=== PATIENT | male | born 1955 | race Caucasian/White ===

== ENCOUNTER 2016-11-21 15:28 | Inpatient (IN) | payer OTHER ==
[~2016-11-21] VITALS: Ht 177.8 cm; Wt 131.3 kg
[~2016-11-21 15:28] MED LIST: ASPI81TA3 PO; ATOR40TA69 PO; CLOP75TA28 PO; FURO40TA4 PO; HYDR-3939 PO; INSU100I SC; INSU100I SQ; INSU100V7 SUBQ; IRON150C15 PO; ISOS20TA7 PO; METO1TAB28 PO
[2016-11-21 16:46] VITALS: BP 184/71; PULSE 71; RESP 19; O2SAT 94
[2016-11-21] MEDS ORDERED: Polyethylene Glycol (PEG) 17 Gm Powder PO PRN (16:50)
[2016-11-21] MEDS ORDERED: Alum-Mag Hydrox-Simeth 30 mL Suspension PO PRN (16:50)
[2016-11-21] MEDS ORDERED: Ondansetron 2 mg/mL 2 mL Inj IVPUSH PRN (16:50)
[2016-11-21] MEDS: 0.9% Sodium Chloride 1,000 ML IV SCH (16:50)
[2016-11-21] MEDS ORDERED: HYDR100T27 PO (16:55)
[2016-11-21] MEDS ORDERED: FRSM80T PO ×2 (16:55)
[2016-11-21] MEDS ORDERED: LISI2.5T PO (16:59)
[2016-11-21] MEDS ORDERED: METO25TA99 PO (16:59)
[2016-11-21] MEDS ORDERED: NITR0.4T SL (16:59)
[2016-11-21] MEDS ORDERED: GABA-502 PO (17:04)
[2016-11-21] MEDS ORDERED: OMEP20CA11 PO (17:04)
[2016-11-21] MEDS ORDERED: CALC0.257 PO (17:04)
--- NOTE | 2016-11-21 17:17 | PCM.HPMED ---
Subjective Date of Service Nov 21, 2016 Primary Provider: Admitting Physician: Michel Resendez DO Primary Care Physician: Audie Collins MD Attending Physician: Michel Resendez DO Chief Complaint: "Renal failure" as per transfering ER physician History of Present Illness: Pt is a 61 yo M with pmhx significant for anemia, chronic renal insufficiency, DMII , hypertension, and hyperlipidemia, presenting to [facility] ER earlier today for further evaluation of acute on chronic renal insufficiency. Lab studies at the hospital demonstrated acutely elevated Cr of 2.7 much above baseline, which prompted communication with on-call rn pediatric icu Dr. Sheehan who recommended direct transfer to [facility] for closer observation and possible dialysis should renal failure prove progressive. Pt additionally suffers from anemia, which is still being evaluated by [employer], who's office pt was at earlier today prior to transfer. While in ER at [facility] pt obtained renal US which demonstrated no significant abnormality. Patient notes most significantly he has been feeling pain in the flank areas for the last few weeks, initially thought was back pain but then began to wonder the health of his kidneys. This was doing conjunction with a decreased amount of urine production, either while continuing to utilize the high-dose of Lasix he was prescribed. Swelling in his legs however which have been a more of a problem previously was greatly improved over the last week especially. At no point has he noted any blood or discoloration of his urine. His stools been a bit looser but otherwise normal. He is not experiencing any chest pain shortness of breath or palpitations. Is currently feeling relatively well, no acute complaints, but a little bit lower energy than his normal. He is quite hungry, hopeful of eating dinner soon. Review of Systems: A 10 point review of systems was conducted and entirely negative excepting pertinent positives and negatives included in above history of present illness Allergies Coded Allergies: No Known Allergies (Unverified , 07/27/15) Home Medications Terbinafine 250mg PO QDAY Metoprolol Succinate/HCTZ 25mg/12.5mg PO QDAY Plavix 75mg PO daily Hydralazine 25 mg PO TID Isosorbide 40mg PO TID Lasix 80mg PO QDAY Lipitor 40mg PO QDAY Lantus 50U SQ QHS Melozicam 15mg PO daily PRN Flexeril 10mg PO TID PRN Humalog 10U TID AC [place] 5/325mg PO Q4H PRN pain Omeprazole 20mg PO QDAY Gabapentin 300mg PO TID PMH Hypertension Hyperlipidemia DMII Diabetic neuropathy Diabetic nephropathy Anemia Renal insufficiency History of non-STEMI Cardiovascular disease Surgical History Tonsillectomy Social History Hx Alcohol Use: No Hx Substance Use: No Hx Tobacco Use: No Smoking Status: Never Smoker Exam Vital Signs Vital Sign - Last Date Time Temp Pulse Resp B/P Pulse Ox O2 Delivery O2 Flow Rate FiO2 11/21/16 16:46 36.5 71 19 184/71 94 Room Air General: Alert, Oriented X3, Cooperative, No Acute Distress Mouth: Mucous Membranes Dry Chest & Lungs: Clear to auscultation & percussion Cardiovascular: Regular Rate/Rhythm, No Murmurs/Rubs/Gallops Abdomen: Non-tender, Non-distended, Other (obese) Extremities: No cyanosis/clubbing/edma bilat, Other (dorsal pedis pulses intact bilaterally, there is trace pedal edema leading to the impressions at sock line) Neurological: Grossly Neurologically Intact, Cranial Nerves 2-12 Intact Assessment & Plan Pt is a 61 yo M with pmhx significant for anemia, chronic renal insufficiency, DMII , hypertension, and hyperlipidemia, presenting to [facility] ER earlier today for further evaluation of acute on chronic renal insufficiency, admitted for further observaiton of renal function and possible dialysis if condition proves progressive 1. Acute on chronic renal failure: - NS 0.9% now at 75ml/hr - Nephrology already aware of patient, will provide consultation which is appreciated - Hold nephrotoxic agents including NSAIDs (meloxicam) in addition to Gabapentin at this time - Will additionally hold diuretic HCTZ initially, in addition to lisinopril. 2. Hypertension - Continue home antihypertensives excepting HCTZ and lisinopril, which includes hydralazine and Metoprolol. - Elevated on admission, PRN Lopressor RX'd for severe hypertension 3. DMII with neuropathy and nephropathy - Continue home Lantus, 50U HS in addition to SSI 4. Anemia: - Continue to monitor - Pt RX'd EPO in past, may consider repeating, awaiting specialist recommendation. 5. Coronary artery disease/lower extremity edema - Continue patient's home statin and aspirin at current dosage. - Patient benefits from loop diuretic at home to aid in lower extremity edema and swelling, likely secondary to impaired cardiac functioning following an STEMI, however given dual diuretic use and evidence for prerenal azotemia, diuresis in the future will have to be conducted with more caution. We will continue holding both diuretics at this time, consider slow initiation as tolerated with assistance of neurology recommendations. Pain Evaluation: Adequate Pain Control GI Prophylaxis: Proton Pump Inhibitor VTE Mechanical Devices: Anti-Embolic stockings Resuscitation Status: CPR: Attempt Resuscitation Time spent 55 minutes Michel Resendez DO Nov 21, 2016 17:17
[2016-11-21] MEDS ORDERED: MeTOProlol 1 mg/mL 5 mL Inj IVPUSH PRN (17:25)
--- NOTE | 2016-11-21 18:17 | NUR ---
ADMIT Admitted a direct admit into room 3006 from [facility] following report from [place], ER ER at . Pt arrived via EMS stretcher, A&Ox4, pleasant. Denies any pain/discomfort. Pt on RA. Able to transfer from stretcher to bed with SBA. IV in L hand, flushing without issue. Per report, pt is diabetic and had not eaten yet. Prior to dc from ER, blood sugar taken: 290. No TELE ordered. Partner and brother at bedside. Pt introduced to staff, bed/controls and call light. Plan is to have nephrology consult. Hospitalist currently at bedside. Bed in lowest, locked position and call light in reach.
[2016-11-21] MEDS: MeTOProlol XL 25 mg ER24 Tablet PO SCH (19:30)
[2016-11-21] MEDS ORDERED: Glucose 40% Oral Gel 15 Gm Tube PO PRN (19:40)
[2016-11-21 19:43] VITALS: BP 148/80; PULSE 70; RESP 19; O2SAT 95
[2016-11-21] MEDS: Insulin LISPRO 300 Unit/3 mL Inj SUBQ SCH (22:58)
[2016-11-21] MEDS: Insulin GLARgine 100 Unit/mL Syringe SUBQ SCH (22:59)
[2016-11-22 04:52] VITALS: BP 149/83; PULSE 69; RESP 18; O2SAT 94
--- NOTE | 2016-11-22 05:43 | NUR ---
uneventful night patient slept throughout the night. using home cpap. denies SOB. vitals stable. c/o cough and back pain. patient helped to reposition in bed and reported improvement of back pain. voiding without difficulty. up independently in room. will continue to monitor.
[2016-11-22 05:57] LABS: BASOPHILS % (AUTO) 0.3 % (0-3); EOSINOPHILS % (AUTO) 4.1 % (0-5); MONOCYTES % (AUTO) 7.3 % (4-12); NEUTROPHILS % (AUTO) 65.4 % (40-74); Platelet Count 250 bil/L (150-400)
[2016-11-22] MEDS: Pantoprazole 40 mg ER24 Tablet PO SCH (05:58)
[2016-11-22] MEDS: 0.9% Sodium Chloride 1,000 ML IV SCH ×3 (05:58→20:44)
[2016-11-22] MEDS ORDERED: INSULIN ASPART 10 UNIT SC SCH (07:30)
[2016-11-22] MEDS: MeTOProlol XL 25 mg ER24 Tablet PO SCH (07:51)
[2016-11-22] MEDS: Insulin LISPRO 300 Unit/3 mL Inj SUBQ SCH ×4 (07:54→21:01)
--- NOTE | 2016-11-22 11:08 | NUR ---
Social Work-screening/ readiness for discharge: Data:EMR Reviewed. Pt is a 61 y/o male who was admitted on 11/21/16 for acute renal failure per H&P. Pt's insurance is [email or web address] and PCP is Jose Raul Collins MD. EMR reviewed. SW met with pt at bedside to discuss discharge planning, SW role explained. Pt is alert and oriented x3. Pt resides at home with his roommate Arjun in [facility] where he remains independent with ADls. Pt drives and does not use any DME. Pt has no HH or SNF history. SW discussed DPOA/ advanced directive, pt confirms he has not completed this and is not interested in any information at this time. Pt confirms his roommate Arjun will provide transport home. Per RN notes, pt has been up independent in his room. SW provided phone number and plan on white board in room. No anticipated discharge needs. SW will continue to follow if needs arise. Assessment:Pt who is independent at baseline. Plan:Pt to discharge home when medically stable via POV. No anticipated discharge needs. SW will continue to follow if needs arise. RICKY De Luna
--- NOTE | 2016-11-22 11:23 | PCM.PNMED ---
Subjective Date of Service Nov 22, 2016 Subjective Patient notes he did well overnight. He slept without difficulty. Denies any shortness of breath chest pain this morning. He has been urinating a good deal even in the absence of Lasix, but not sure if it is exactly as baseline. He denies any worsening of his lower extremity swelling. No other acute complaints at this time Exam Vital Signs Vital Sign - Last Date Time Temp Pulse Resp B/P Pulse Ox O2 Delivery O2 Flow Rate FiO2 11/22/16 04:52 36.4 69 18 149/83 94 CPAP Intake and Output 11/21/16 11/21/16 11/22/16 Cumulative From/Thru 15:00 23:00 07:00 11/21/16 16:46 - 11/22/16 06:01 Intake Total 500 ml 500 ml Output Total 1075 ml 1075 ml Balance -575 ml -575 ml Intake Oral 500 ml 500 ml Output Urine Total 1075 ml 1075 ml # Voids 1 1 General: Alert, Oriented X3, Cooperative, No Acute Distress Eyes: PERRLA Mouth: Mucous Membr Moist/[place] Chest & Lungs: Clear to auscultation & percussion Cardiovascular: Regular Rate/Rhythm, No Murmurs/Rubs/Gallops Abdomen: Non-tender, Non-distended, Other (obese) Extremities: No cyanosis/clubbing/edma bilat, Other (well-perfused) Neurological: Grossly Neurologically Intact IVs and Medications Medications Reviewed: Medications were reviewed in detail Lab and Diagnostics Result Diagram: 11/22/1615 11/22/1615 Assessment & Plan Pt is a 61 yo M with pmhx significant for anemia, chronic renal insufficiency, DMII , hypertension, and hyperlipidemia, presenting to [facility] ER earlier today for further evaluation of acute on chronic renal insufficiency, admitted for further observaiton of renal function and possible dialysis if condition proves progressive 1. Acute on chronic renal failure: - NS 0.9% now at 75ml/hr - Nephrology already aware of patient, will provide consultation which is appreciated - Hold nephrotoxic agents including NSAIDs (meloxicam) in addition to Gabapentin at this time - Will additionally hold diuretic HCTZ initially, in addition to lisinopril. 2. Hypertension - Continue home antihypertensives excepting HCTZ and lisinopril, which includes hydralazine and Metoprolol. - Elevated on admission, not yet normalized but improved this morning. - PRN Lopressor RX'd for severe hypertension 3. DMII with neuropathy and nephropathy - Continue home Lantus, 50U HS in addition to SSI 4. Anemia: - Continue to monitor - Pt RX'd EPO in past, may consider repeating, awaiting specialist recommendation. 5. Coronary artery disease/lower extremity edema - Continue patient's home statin and aspirin at current dosage. - Patient benefits from loop diuretic at home to aid in lower extremity edema and swelling, likely secondary to impaired cardiac functioning following an STEMI, however given dual diuretic use and evidence for prerenal azotemia, diuresis in the future will have to be conducted with more caution. We will continue holding both diuretics at this time, consider slow initiation as tolerated with assistance of neurology recommendations. Pain Evaluation: Adequate Pain Control GI Prophylaxis: Proton Pump Inhibitor VTE Mechanical Devices: Anti-Embolic stockings Resuscitation Status: CPR: Attempt Resuscitation Time spent 30 minutes Michel Resendez DO Nov 22, 2016 11:23
[2016-11-22 13:28] VITALS: BP 149/75; PULSE 75; RESP 18; O2SAT 96
--- NOTE | 2016-11-22 13:36 | NUR ---
PVR Doctor ordered PVR. Nurse preformed bladder scan and had a total of 10ml PVR. MD notified of results.
[2016-11-22 14:34] LABS: APPEARANCE,URINE CLEAR (CLEAR,HAZY); COLOR,URINE YELLOW (YELLOW); OCCULT BLOOD,URINE NEGATIVE (NEGATIVE); PH,URINE 5.5 (5.0-8.0); UROBILINOGEN,URINE NORMAL (NORMAL)
--- NOTE | 2016-11-22 15:24 | CONS ---
[address] [address] CONSULTATION REPORT PATIENT: ENZO NUNES : 1955 MR#: [id number] ADMIT: 11/21/2016 JOB ID: [id number] DATE OF SERVICE: 11/22/2016 REASON FOR CONSULTATION: Worsening kidney function. REQUESTING PHYSICIAN: Michel Resendez MD. CHIEF COMPLAINT: Transferred from [facility] due to worsening kidney function. PRESENT ILLNESS: This is a very pleasant, 61-year-old, male with significant past medical history of type 2 diabetes, biopsy-proven diabetic nephropathy, diabetic neuropathy, hypertension, sleep apnea, coronary artery disease, who was transferred to our facility for a higher level of care. Apparently, patient was evaluated by production planner given chronic anemia. The blood work showed worsening kidney function with a BUN over 140 and creatinine was 2.7. She is the patient of Dr. Desir. He mentioned that the last visit with his primary customer service voice was about two weeks ago. He cannot recall the level of the serum creatinine. Per our record in [employer] system, the report from Dr. Desir stated that patient has history of chronic kidney disease stage 3, related to biopsy-proven diabetic nephropathy. BUN and creatinine on August 22, 2016, were 65 and 1.8 respectively. On that day, metolazone 2.5 mg was added to be taken every Thursday and on top of Lasix 240 mg in the morning and 80 mg in the afternoon. The patient has history of proteinuria with the last protein and creatinine ratio 1.52 g/g. He reported that he has been on high-dose loop diuretics for at least a year. Typically, he had lower extremity swelling. So far, patient had lost at least 10 pounds over the past month, also. He does not have significant lower extremity swelling. He reported that over the past month or so, he noticed declining of the urine volume and noticed dark-colored urine. He also had difficulty urinating. Of note, he mentioned that he had left flank pain. Got worse while bending over or sitting. The patient was seen by his practitioner and was given muscle relaxant and meloxicam. He was also taking gabapentin for neuropathy over the past six months. He does not use any NSAIDs except meloxicam that was prescribed by his physician for the left flank pain. The patient reports no fever, no chills, no chest pain, no shortness of breath. The patient received IV fluid overnight, has normal saline 75 cc/hour. Repeat BMP this morning showed BUN of 138, creatinine of 2.29, glucose of 224. He has no new complaint today. PAST MEDICAL HISTORY: 1. Poor controlled diabetes complicated by diabetic nephropathy, neuropathy. 2. Coronary artery disease. 3. History of w[place]. 4. Chronic kidney disease stage 3. 5. Proteinuria secondary to diabetic nephropathy, status post biopsy proven. 6. Dyslipidemia. 7. Severe obstructive sleep apnea. SURGICAL HISTORY: Status post tonsillectomy. SOCIAL HISTORY: Denies current use of alcohol, tobacco, or illicit drugs. FAMILY HISTORY: Noncontributory. ALLERGIES: NO KNOWN DRUG ALLERGIES. MEDICATIONS: Reviewed. Of note, he was on: 1. Furosemide 240 mg in the morning, 80 mg in the afternoon. 2. Lisinopril 2.5 mg daily. 3. Metolazone 2.5 mg on Thursday and . 4. Meloxicam once a day. 5. Omeprazole 20 mg once a day. 6. Metoprolol ER 25 once a day. 7. Isosorbide dinitrate 40 mg t.i.d. 8. Lantus. 9. NovoLog. 10. Hydralazine. 11. Gabapentin 300 b.i.d. 12. Lipitor. 13. Calcitriol. 14. Aspirin. 15. Plavix. REVIEW OF SYSTEMS: Fourteen-point review of system was performed. PHYSICAL EXAMINATION: VITALS: Temperature 36.6, pulse 75, respiratory rate 18, blood pressure 149/75, O2 sat 96% on room air. GENERAL APPEARANCE: Awake, alert, oriented x3. In no acute distress. HEENT: PERRLA. Atraumatic. Moist mucous membranes. PERRLA. No JVD. No lymphadenopathy. No thyroid enlargement. HEART: Regular rhythm. Normal S1, S2. No murmurs, rubs, or gallops. LUNGS: Clear to auscultation bilaterally. ABDOMEN: Soft, active bowel sounds. EXTREMITIES: No edema, cyanosis, or clubbing of fingers. Kidney sonogram was done in [facility]. Showed no significant abnormalities. LABORATORY: Sodium 140, potassium 5.0, chloride 101, bicarb 20, BUN 138, creatinine 2.29, glucose 224. Calcium 9.8, hemoglobin 10.4. UA: Specific gravity 1.010, pH 5.5, 30 protein, 250 glucose, 0-2 RBCs, 0-5 WBC, rare hyaline casts. ASSESSMENT: 1. Acute kidney injury, on stage 3 chronic kidney disease secondary to overdiuresis and possible component of ischemic ATN and also with the NSAID-induced acute kidney injury (meloxicam). 2. Type 2 diabetes complicated by diabetic neuropathy and diabetic nephropathy. 3. Proteinuria. 4. Hypertension with hypertensive nephrosclerosis. 5. Anemia likely due to anemia of chronic kidney disease. 6. Coronary artery disease. 7. Severe sleep apnea. 8. Dyslipidemia. PLAN: At this point, I would like to continue normal saline at 75 cc/hour. Will recommend to hold all diuretics. Avoid nephrotoxins including meloxicam and other NSAIDs. Check postvoid residual to rule out any neurogenic bladder or obstructive uropathy. Hold lisinopril. Will repeat anemia workup and repeat urine protein/creatinine ratio. Will order urine eosinophils. No urgent dialysis indicated at this moment. Thank you for allowing me to participate in the care of your patient. We will monitor along with you. [facility]ITALL[facility]ont
[2016-11-22 20:50] VITALS: BP 180/92; PULSE 75; RESP 18; O2SAT 92
[2016-11-22] MEDS: Insulin GLARgine 100 Unit/mL Syringe SUBQ SCH (21:01)
--- NOTE | 2016-11-23 04:41 | NUR ---
Noc activity Pt had an elevated sugar levels, has been running on 320. Insulin lantus and lispro administered as per sliding scale, and was verified with Raeann Crystal RN. HS meds administered as scheduled, VSS and has been afebrile. Hourly rounding in effect and pt has slept most of the night.
[2016-11-23 04:49] VITALS: BP 185/92; PULSE 74; RESP 18; O2SAT 95
[2016-11-23] MEDS: Pantoprazole 40 mg ER24 Tablet PO SCH (06:22)
[2016-11-23] MEDS: MeTOProlol XL 25 mg ER24 Tablet PO SCH (07:52)
[2016-11-23] MEDS: Insulin LISPRO 300 Unit/3 mL Inj SUBQ SCH ×4 (07:53→21:01)
[2016-11-23 10:16] VITALS: BP 177/79; PULSE 76; RESP 20; O2SAT 95
[2016-11-23] MEDS: 0.9% Sodium Chloride 1,000 ML IV SCH ×2 (10:36→14:09)
--- NOTE | 2016-11-23 10:51 | PCM.PNMED ---
Subjective Date of Service Nov 23, 2016 Subjective Overall patient says he is feeling very well, has no acute complaints this morning. He is eating and drinking a good deal, denies any shortness of breath or chest pains. Swelling his legs which he had taken diuretics now held ,has not returned Exam Vital Signs Vital Sign - Last Date Time Temp Pulse Resp B/P Pulse Ox O2 Delivery O2 Flow Rate FiO2 11/23/16 10:16 36.5 76 20 177/79 95 Room Air Intake and Output 11/22/16 11/22/16 11/23/16 Cumulative From/Thru 15:00 23:00 07:00 11/21/16 16:46 - 11/23/16 06:23 Intake Total 2172 ml 1536 ml 4208 ml Output Total 1900 ml 1025 ml 4000 ml Balance 272 ml 511 ml 208 ml Intake Oral 1356 ml 673 ml 2529 ml IV Total 816 ml 863 ml 1679 ml Output Urine Total 1900 ml 1025 ml 4000 ml # Voids 1 # Bowel Movements 1 1 Exam General: Alert, Oriented X3, Cooperative, No Acute Distress Eyes: PERRLA Mouth: Mucous Membranes Moist/[place] Chest & Lungs: Clear to auscultation & percussion Cardiovascular: Regular Rate/Rhythm, No Murmurs/Rubs/Gallops Abdomen: Non-tender, Non-distended, Other (obese) Extremities: No cyanosis/clubbing/edema bilat, and well-perfused) Neurological: Grossly Neurologically Intact IVs and Medications Medications Reviewed: Medications were reviewed in detail Lab and Diagnostics Result Diagram: 11/22/16 0515 11/23/16 0445 Assessment & Plan Pt is a 61 yo M with pmhx significant for anemia, chronic renal insufficiency, DMII , hypertension, and hyperlipidemia, presenting to [facility] ER earlier today for further evaluation of acute on chronic renal insufficiency, admitted for further observaiton of renal function and possible dialysis if condition proves progressive 1. Acute on chronic renal failure: - NS 0.9% now at 75ml/hr, will certainly be considering discontinuation later in the day following discussion with nephrology - Holding nephrotoxic agents including NSAIDs (meloxicam) in addition to Gabapentin at this time - Will additionally hold diuretic HCTZ initially, in addition to lisinopril, however given patient's elevated blood pressure some decisions on long-term antihypertensive therapy will need to be made prior to discharge. Turned of therapies may be considered though given patient's comorbid diabetes lisinopril certainly be of benefit if not overly damaging to renal function. 2. Hypertension - Continue home antihypertensives excepting HCTZ and lisinopril, which includes hydralazine and Metoprolol. - Elevated on admission, and remained so this morning. - As noted above we will need to consider additional medications for blood pressure control in conjunction with patient's renal disease. - We will discuss possibilities further with nephrology prior to initiating additional antihypertensive medications - PRN Lopressor RX'd for severe hypertension 3. DMII with neuropathy and nephropathy - Continue home Lantus, 50U HS in addition to SSI - Patient may benefit from diabetic education, it should be available after the weekend should his sonogram hospital. 4. Anemia: - Continue to monitor - Pt RX'd EPO in past, may consider repeating, awaiting specialist recommendation. 5. Coronary artery disease/lower extremity edema - Continue patient's home statin and aspirin at current dosage. - Patient benefits from loop diuretic at home to aid in lower extremity edema and swelling, likely secondary to impaired cardiac functioning following an STEMI, however given dual diuretic use and evidence for prerenal azotemia, diuresis in the future will have to be conducted with more caution. We will continue holding both diuretics at this time, consider slow initiation as tolerated with assistance of nephrology recommendations. Disposition: I anticipate he will be discharged home 1-2 days following medical stabilization and found decisions to be made based on need for continued diuresis and optimal hypertensive management, of course with improving renal function in addition. GI Prophylaxis: Proton Pump Inhibitor VTE Mechanical Devices: Anti-Embolic stockings Resuscitation Status: CPR: Attempt Resuscitation Time spent 25 minutes Michel Resendez DO Nov 23, 2016 10:51
[2016-11-23 14:12] VITALS: BP 164/74; PULSE 77; RESP 18; O2SAT 95
--- NOTE | 2016-11-23 14:17 | PCM.PNNEPH ---
Subjective Date of Service Nov 23, 2016 Subjective He is feeling better, no CP/SOB. good appetite, wants to go home. Kidney function continues to improved. Exam Vital Signs Vital Sign - Last Date Time Temp Pulse Resp B/P Pulse Ox O2 Delivery O2 Flow Rate FiO2 11/23/16 10:16 36.5 76 20 177/79 95 Room Air Intake and Output 11/22/16 11/22/16 11/23/16 Cumulative From/Thru 15:00 23:00 07:00 11/21/16 16:46 - 11/23/16 06:23 Intake Total 2172 ml 1536 ml 4208 ml Output Total 1900 ml 1025 ml 4000 ml Balance 272 ml 511 ml 208 ml Intake Oral 1356 ml 673 ml 2529 ml IV Total 816 ml 863 ml 1679 ml Output Urine Total 1900 ml 1025 ml 4000 ml # Voids 1 # Bowel Movements 1 1 Exam GENERAL APPEARANCE: Awake, alert, oriented x3. In no acute distress. HEENT: PERRLA. Atraumatic. Moist mucous membranes. PERRLA. No JVD. No lymphadenopathy. No thyroid enlargement. HEART: Regular rhythm. Normal S1, S2. No murmurs, rubs, or gallops. LUNGS: Clear to auscultation bilaterally. ABDOMEN: Soft, active bowel sounds. EXTREMITIES: trace edema, cyanosis, or clubbing of fingers. Lab and Diagnostics Result Diagram: 11/22/16 0515 11/23/16 0445 Plan Impression 1. Acute kidney injury, on stage 3 chronic kidney disease secondary to overdiuresis and possible component of ischemic ATN and also with the NSAID-induced acute kidney injury (meloxicam). 2. Type 2 diabetes complicated by diabetic neuropathy and diabetic nephropathy. 3. Proteinuria. 4. Hypertension with hypertensive nephrosclerosis. 5. Anemia likely due to anemia of chronic kidney disease. 6. Coronary artery disease. 7. Severe sleep apnea. 8. Dyslipidemia. Plan: Continue NS 75 ml/hr x 1L then d/c. Repeat CBC and BMP in am. Rec to resume lasix, lower dose 80 mg PO BID, hold metolazone, d/c all NSAIDs when d/c'd home. Daily weight, diuretic dosage may need to be readjusted later on. F/u with his primary director of cardiology in 1-2 weeks. Will sign off, please do not hesitate to call with any question for concern. Delroy Goff MD Nov 23, 2016 14:17
--- NOTE | 2016-11-23 18:39 | NUR ---
Daily activity Patient alert and oriented X4. Patient had slight back pain this morning of 08/29, but refused any medication. Patient cooperative with care. Patient was tired today and slept for periods throughout the day.
[2016-11-23 20:51] VITALS: BP 177/79; PULSE 82; RESP 18; O2SAT 95
[2016-11-23] MEDS: Insulin GLARgine 100 Unit/mL Syringe SUBQ SCH (21:02)
[2016-11-24] MEDS: 0.9% Sodium Chloride 1,000 ML IV SCH (00:09)
[2016-11-24] MEDS ORDERED: HYDROcodone-APAP 5-325 mg Tablet PO ONE (03:05)
[2016-11-24 04:58] VITALS: BP 157/85; PULSE 72; RESP 18; O2SAT 96
[2016-11-24 05:36] LABS: BASOPHILS % (AUTO) 0.2 % (0-3); MONOCYTES % (AUTO) 6.7 % (4-12); Mean Corpuscular Hemoglobin 26.3 pg (27.0-35.0); Mean Corpuscular Volume 82.7 fL (81-100); NEUTROPHILS % (AUTO) 80.6 % (40-74); Platelet Count 198 bil/L (150-400)
--- NOTE | 2016-11-24 05:45 | NUR ---
NOC/Pain Pt reports of hip pain that is 8/10, controlled by 1 time dose of Hydrocodone. However, Denies chest pain, sob, n/v or abd discomfort. HS meds administered as scheduled and blood sugar check done. Insulin administered per sliding scale. Hourly rounding in effect, VSS and has been afebrile all night.
[2016-11-24] MEDS: Pantoprazole 40 mg ER24 Tablet PO SCH (06:01)
[2016-11-24] MEDS ORDERED: HYDROcodone-APAP 5-325 mg Tablet PO PRN (08:50)
[2016-11-24] MEDS: MeTOProlol XL 25 mg ER24 Tablet PO SCH (09:08)
[2016-11-24] MEDS: Insulin LISPRO 300 Unit/3 mL Inj SUBQ SCH (09:08)
--- NOTE | 2016-11-24 10:32 | PCM.DC.MED ---
Discharge Summary Date of Service Nov 24, 2016 Dates of Hospitalization Date of Hospital Admission Nov 21, 2016 at 15:28 Date of Discharge: Nov 24, 2016 Providers: Admitting Physician: Michel Resendez DO Primary Care Physician: Audie Collins MD Attending Physician: Michel Resendez DO Diagnosis at Time of Discharge Diagnosis at Time of Discharge 1. Acute kidney injury, on stage 3 chronic kidney disease secondary to overdiuresis and possible component of ischemic ATN and also with the NSAID-induced acute kidney injury (meloxicam). 2. Type 2 diabetes complicated by diabetic neuropathy and diabetic nephropathy. 3. Proteinuria. 4. Hypertension with hypertensive nephrosclerosis. 5. Anemia likely due to anemia of chronic kidney disease. 6. Coronary artery disease. 7. Severe sleep apnea. 8. Dyslipidemia. Consultations Nephrology; Dr. Sheehan Brief History Pt is a 61 yo M with pmhx significant for anemia, chronic renal insufficiency, DMII , hypertension, and hyperlipidemia, presenting to [facility] ER earlier today for further evaluation of acute on chronic renal insufficiency. Lab studies at the hospital demonstrated acutely elevated Cr of 2.7 much above baseline, which prompted communication with on-call final assembly inspector Dr. Sheehan who recommended direct transfer to [facility] for closer observation and possible dialysis should renal failure prove progressive. Pt additionally suffers from anemia, which is still being evaluated by Supervisor Dry Paste, who's office pt was at earlier today prior to transfer. While in ER at [place] pt obtained renal US which demonstrated no significant abnormality. Patient notes most significantly he has been feeling pain in the flank areas for the last few weeks, initially thought was back pain but then began to wonder the health of his kidneys. This was doing conjunction with a decreased amount of urine production, either while continuing to utilize the high-dose of Lasix he was prescribed. Swelling in his legs however which have been a more of a problem previously was greatly improved over the last week especially. At no point has he noted any blood or discoloration of his urine. His stools been a bit looser but otherwise normal. He is not experiencing any chest pain shortness of breath or palpitations. Is currently feeling relatively well, no acute complaints, but a little bit lower energy than his normal. He is quite hungry, hopeful of eating dinner soon. Hospital Course 1. Acute on chronic renal failure: Hospital course as follows: - On admission, patient was initiated on intravenous fluids which were tapered and subsequently discontinued on recommendation from consult a final assembly inspector - We continued holding Holding nephrotoxic agents including NSAIDs (meloxicam), in addition to all diuretics on admission. Plan to discontinue hydrochlorothiazide cautiously resume Lasix at lower than previous dose with plan to follow-up for renal studies in 1-2 weeks to further assess. - In addition Gabapentin was held on admission but restarted at time of discharge his incision is not overly nephrotoxic and with improving renal function should be well-tolerated . 2. Hypertension - Continue home antihypertensives excepting HCTZ, Isopril was restarted on discharge. - Patient should again follow up with primary care physician in next 1 week for blood pressure check and further consideration of medication management. - Both pressures were elevated but only mildly so on discharge. 3. DMII with neuropathy and nephropathy - Continued home Lantus, 50U HS in addition to SSI 4. Anemia: - Likely at least in part related to chronic renal disease - Stable throughout admission - Was no consideration for hormonal therapy, EPO during this hospitalization. 5. Coronary artery disease/lower extremity edema - Continued patient's home statin and aspirin at current dosage. - Patient benefits from loop diuretic at home to aid in lower extremity edema and swelling, as such this was the priority when restarting diuretics. It was continued at 80 mg daily at this time, with hydrochlorothiazide held as noted above. - Patient was monitored on telemetry without abnormalities noted. He was in stable condition at time of discharge Exam Vital Signs (Last) Date Time Temp Pulse Resp B/P Pulse Ox O2 Delivery O2 Flow Rate FiO2 11/24/16 04:58 37.1 72 18 157/85 96 CPAP Exam General: Alert, Oriented X3, Cooperative, No Acute Distress Eyes: PERRLA Mouth: Mucous Membranes Moist/[place] Chest & Lungs: Clear to auscultation & percussion Cardiovascular: Regular Rate/Rhythm, No Murmurs/Rubs/Gallops Abdomen: Non-tender, Non-distended, obese Extremities: No cyanosis/clubbing/edema bilat, and well-perfused) Neurological: Grossly Neurologically Intact Test 11/22/16 05:15 11/22/16 13:18 11/22/16 15:00 11/23/16 04:45 Magnesium Level 2.0mg/dL (1.6-2.6) Total Bilirubin 0.2mg/dL (0.0-1.2) Aspartate Amino Transf (AST/SGOT) 10U/L (0-50) Alanine Aminotransferase (ALT/SGPT) 10U/L (0-44) Alkaline Phosphatase 117U/L (25-160) Total Protein 7.5g/dL (6.4-8.4) Albumin 3.8g/dL (3.4-5.0) Urine Color Yellow (YELLOW) Urine Appearance Clear (CLEAR,HAZY) Urine pH 5.5 (5.0-8.0) Urine Specific [place] 1.010 (1.003-1.035) Urine Protein 30mg/dL (NEG,TRACE) Urine Glucose (UA) 250mg/dL (NEGATIVE) Urine Ketones Negativemg/dL (NEGATIVE) Urine Occult Blood Negative (NEGATIVE) Urine Nitrite Negative (NEGATIVE) Urine Bilirubin Negative (NEGATIVE) Urine Urobilinogen Normalmg/dL (NORMAL) Urine Leukocyte Esterase Negative (NEGATIVE) Urine RBC 0-2/hpf (0-2) Urine WBC 0-5/hpf (0-5) Urine Epithelial Cells Occasional/hpf (NONE-MOD) Urine Crystals None seen (NONE SEEN) Urine Bacteria Few/hpf (NONE-FEW) Urine Hyaline Casts Rare/lpf (NONE) Urine Granular Casts None seen (NONE SEEN) Urine Waxy Casts None seen (NONE SEEN) Urine Red Blood Cell Casts None seen (NONE SEEN) Urine White Blood Cell Casts None seen (NONE SEEN) Urine Mucus None seen (None Seen) Urine Trichomonas None seen (NONE SEEN) Urine Yeast None (NONE SEEN) Urinalysis Comment None Urine Culture Reflexed Not indicated Urine Random Creatinine 42mg/dL (22-328) Urine Random Total Protein 39mg/dL (0-15) Iron Level 80ug/dL (35-150) Total Iron Binding Capacity 252ug/dL (250-450) Percent Iron Saturation 32%sat (15-50) Unsaturated Iron Binding 172.0ug/dL Ferritin 410ng/mL (30-400) Test 11/24/16 05:12 White Blood Count 12.2th/mm3 (3.8-10.1) Red Blood Count 3.65mil/mm3 (4.40-5.80) Hemoglobin 9.6g/dL (13.8-17.2) Hematocrit 30.2% (41.0-50.0) Mean Corpuscular Volume 82.7fL (81-100) Mean Corpuscular Hemoglobin 26.3pg (27.0-35.0) Mean Corpuscular Hemoglobin Concent 31.8% (32.0-37.0) Red Cell Distribution Width 15.3% (12.3-15.4) Platelet Count 198bil/L (150-400) Neutrophils (%) (Auto) 80.6% (40-74) Lymphocytes (%) (Auto) 10.3% (14-46) Monocytes (%) (Auto) 6.7% (4-12) Eosinophils (%) (Auto) 2.0% (0-5) Basophils (%) (Auto) 0.2% (0-3) Sodium Level 145mEq/L (134-144) Potassium Level 4.3mEq/L (3.5-5.2) Chloride Level 111mEq/L (97-108) Carbon Dioxide Level 20mmol/L (18-29) Blood Urea Nitrogen 73mg/dL (8-27) Creatinine 1.52mg/dL (0.76-1.27) Estimat Glomerular Filtration Rate 49mL/min (>59) Glucose Level 142mg/dL (60-99) Calcium Level 9.8mg/dL (8.5-10.1) Discharge Medications Discharge Medications Aspirin Chew (Aspirin Chew) 81 Mg Tablet 81 MG PO DAILY Prescribed by: SHAJI PADILLA DO, RESIDENT Atorvastatin Calcium (Atorvastatin Calcium) 40 Mg Tablet 40 MG PO DAILY ( Reported) Calcitriol (Rocaltrol) 0.25 Mcg Capsule 0.25 MCG PO DAILY (Reported) Clopidogrel (Clopidogrel) 75 Mg Tablet 75 MG PO DAILY Prescribed by: SHAJI PADILLA DO, RESIDENT Furosemide (Furosemide) 80 Mg Tab 240 MG PO QAM (Reported) Furosemide (Furosemide) 80 Mg Tab 80 MG PO DAILY (Reported) in the AFTERNOON Gabapentin (Gabapentin) 300 Mg Capsule 300 MG PO BID (Reported) Hydralazine (Hydralazine) 100 Mg Tablet 100 MG PO TID (Reported) Insulin Aspart (NovoLOG U-100 Pen) 100 Unit/Ml Insuln.pen 10 UNITS SC TIDAC ( Reported) Insulin Glargine (Lantus U100 Insulin Vial) 100 Unit/Ml Vial 50 UNIT SUBQ HS ( Reported) Isosorbide DN (Isosorbide DN) 20 Mg Tablet 40 MG PO TID Prescribed by: SHAJI PADILLA DO, RESIDENT Lisinopril (Lisinopril) 2.5 Mg Tablet 2.5 MG PO DAILY (Reported) Metoprolol Succinate ER (Metoprolol Succinate ER) 25 Mg Tab.er.24h 25 MG PO DAILY (Reported) Omeprazole (Omeprazole) 20 Mg Capsule.dr 20 MG PO DAILY (Reported) As needed Nitroglycerin SL (Nitrostat) 0.4 Mg Tab.subl 0.4 MG SL Q5MIN PRN PRN For Chest Pain (Reported) Followup Plan Disposition: Home with partner Follow-up plan Follow-up with primary care within 1 week of discharge, for BMP. Follow-up with outpatient final assembly inspector in 1-2 weeks following discharge, for further management considerations. Discharge Diet: Heart Healthy, Diabetic Discharge Activity: No restrictions Follow-up Provider: Audie Collins MD Follow-up with PCP in: 1 week Time spent 45 minutes copies to: Audie Collins MD, Benjamin P DO Nov 24, 2016 10:32
[2016-11-24] MEDS ORDERED: FRSM80T PO (10:33)
--- NOTE | 2016-11-24 10:37 | PCM.DIMED ---
Discharge Instructions Date of Service Nov 24, 2016 Dates of Hospitalization Nov 21, 2016 at 15:28 Discharge Diagnosis Discharge Diagnosis 1. Acute kidney injury, on stage 3 chronic kidney disease secondary to overdiuresis and possible component of ischemic ATN and also with the NSAID-induced acute kidney injury (meloxicam). 2. Type 2 diabetes complicated by diabetic neuropathy and diabetic nephropathy. 3. Proteinuria. 4. Hypertension with hypertensive nephrosclerosis. 5. Anemia likely due to anemia of chronic kidney disease. 6. Coronary artery disease. 7. Severe sleep apnea. 8. Dyslipidemia. Diet Discharge Diet: Heart Healthy, Diabetic Activity Discharge Activity: No restrictions Patient Instructions Patient Instructions Continue low-sodium diet Note changes in Lasix to 80 mg twice daily Follow-up with primary care in 1 week if possible for follow-up renal function testing Follow-up with multi operation forming machine setter in 2 weeks for further discussion of renal functioning in addition to plans for further diuretic(Lasix) dosing, as further adjustment may be required. Follow-up plan Follow-up with primary care within 1 week of discharge, for BMP. Follow-up with outpatient multi operation forming machine setter in 1-2 weeks following discharge, for further management considerations. Follow-up Provider: Audie Collins MD Follow-up with PCP in: 1 week Michel Resendez DO Nov 24, 2016 10:37
--- NOTE | 2016-11-24 10:52 | NUR ---
Social Work-discharge: Data:EMR reviewed. Pt i son day 3 of hospitalization for acute renal failure per H&P. Pt is medically stable for discharge home today. Pt resides at home in [facility] where he remains independent with ADLs. Pt confirms home no needs. Pt's friend to provide transport home today. No discharge needs identified. All updated and agreeable to plan. Assessment:Pt who is independent at baseline. Plan:Pt to discharge home today via POV. No discharge needs identified. All updated and agreeable to plan. RICKY De Luna
[2016-11-24] MEDS ORDERED: HYDR-4003 PO (11:25)
--- NOTE | 2016-11-24 12:40 | NUR ---
discharge Went over discharge instructions with patient who verbally acknowledged understanding. Removed IV. Pt left in wheel chair with this RN to awaiting transportation. No s/s of distress at time of discharge.
== END 2016-11-24 12:22 | disposition home or self-care (01) | DRG 460 ==
LOC: MPC 15:28
PROVIDERS: ADMIT Family Medicine; ATTEND Family Medicine
DX: N17.9 Acute kidney failure, unspecified (principal); E11.21 Type 2 diabetes mellitus with diabetic nephropathy; E11.40 Type 2 diabetes mellitus with diabetic neuropathy, unspecified; N18.3 Chronic kidney disease, stage 3 (moderate); I12.9 Hypertensive chronic kidney disease with stage 1 through stage 4 chronic kidney disease, or unspecified chronic kidney disease; E11.22 Type 2 diabetes mellitus with diabetic chronic kidney disease; D63.1 Anemia in chronic kidney disease; I25.10 Atherosclerotic heart disease of native coronary artery without angina pectoris; E78.5 Hyperlipidemia, unspecified; G47.33 Obstructive sleep apnea (adult) (pediatric)

== ENCOUNTER 2016-11-27 22:57 | Inpatient (IN) | payer OTHER ==
[~2016-11-27] VITALS: Ht 180.3 cm; Wt 135.1 kg
[~2016-11-27 22:57] MED LIST changes: +CALC0.257 PO; +FRSM80T PO; -FURO40TA4 PO; +GABA-502 PO; -HYDR-3939 PO; +HYDR-4003 PO; +HYDR100T27 PO; -INSU100I SQ; -IRON150C15 PO; +LISI2.5T PO; -METO1TAB28 PO; +METO25TA99 PO; +NITR0.4T SL; +OMEP20CA11 PO
[2016-11-27 23:01] VITALS: BP 145/57; PULSE 85; RESP 17; O2SAT 95
--- NOTE | 2016-11-27 23:17 | ED.REPORT ---
HPI-General Illness Date of Service Nov 27, 2016 ED Provider: Leon Murillo MD Pt is a 61 y.o. male with a hx of DMII, chronic renal insufficiency, HTN, CHF, and VT who presents to the ED via EMS c/o worsening weakness onset 4 days ago. Pt states that he had difficulty with ambulating due to weakness and it has progressed to him being unable to stand or ambulate. He also reports associated bilateral lower extremity pain and constipation onset 3 days ago. He denies fever, chills, nausea, vomiting, back pain, numbness, SOB, and urinary symptoms. Pt was recently discharged from the hospital (11/21-11/24) for acute on chronic kidney injury. Nursing Notes Stated Complaint: GENERALIZED WEAKNESS Chief Complaint: General Complaint Nursing Notes Reviewed: Yes Allergies: Coded Allergies: No Known Allergies (Unverified , 11/27/16) Scheduled Aspirin Chew (Aspirin Chew) 81 Mg Tablet 81 MG PO DAILY Atorvastatin Calcium (Atorvastatin Calcium) 40 Mg Tablet 40 MG PO DAILY Calcitriol (Rocaltrol) 0.25 Mcg Capsule 0.25 MCG PO DAILY Clopidogrel (Clopidogrel) 75 Mg Tablet 75 MG PO DAILY Furosemide (Furosemide) 80 Mg Tab 80 MG PO BID Gabapentin (Gabapentin) 300 Mg Capsule 300 MG PO BID Hydralazine (Hydralazine) 100 Mg Tablet 100 MG PO TID Insulin Aspart (NovoLOG U-100 Pen) 100 Unit/Ml Insuln.pen 10 UNITS SC TIDAC Insulin Glargine (Lantus U100 Insulin Vial) 100 Unit/Ml Vial 50 UNIT SUBQ HS Isosorbide DN (Isosorbide DN) 20 Mg Tablet 40 MG PO TID Lisinopril (Lisinopril) 2.5 Mg Tablet 2.5 MG PO DAILY Metoprolol Succinate ER (Metoprolol Succinate ER) 25 Mg Tab.er.24h 25 MG PO DAILY Omeprazole (Omeprazole) 20 Mg Capsule.dr 20 MG PO DAILY Scheduled PRN Nitroglycerin SL (Nitrostat) 0.4 Mg Tab.subl 0.4 MG SL Q5MIN PRN PRN For Chest Pain General Time Seen by MD: 23:16 Chief Complaint Weakness Hx Obtained From: Patient Arrived By: Ambulance Sudden in Onset?: Yes Onset Occurred: 4 days ago Symptom Duration: Since onset Past Medical History Past Medical History CHF VT DM HTN Stage 3 chronic kidney disease GERD Diabetic neuropathy Sleep apnea Depression Anxiety Past Surgical History Eye Toe Foot Smoking History Never Smoker Ambulatory Status Independent Review of Systems Full Review of Systems Constitutional: Reports: Weakness - generalized, Denies: Chills, Fever Respiratory: Denies: Shortness of breath GI: Reports: Constipation, Denies: Diarrhea, Nausea, Vomiting Male: Denies Dysuria, Denies Incontinence, Denies Urinary frequency, Denies Urinary urgency, Denies Urination decreased, Denies Urination increased Musculoskeletal: Reports: Extremity pain (Lower extremities), Denies: Back pain Neurologic: Denies: Numbness Complete sys rev & neg: except as marked. Physical Exam Vital Signs Vital Signs Date Time Temp Pulse Resp B/P Pulse Ox O2 Delivery O2 Flow Rate FiO2 11/27/16 23:01 37.4 85 17 145/57 95 Room Air Initial VS: Reviewed Abdomen / GI: No distention Extremities: Vascular intact, Neuro intact Skin: Warm, Dry, No cyanosis Psychiatric: Mood/affect normal, Behavior normal, Normal thought content General/Constitutional: Awake, Alert, Well appearing, Well nourished, Not toxic appearing Appearance / Presentation: Positive: Obese, morbidly, Pale Tremulous Looks chronically ill Head / Eyes: Atraumatic, Normocephalic Eye Movement: Positive: Lateral gaze asymmetry, Nystagmus present Neck: Atraumatic, No JVD Respiratory / Chest: Atraumatic, Breath sounds NL, Breath sounds = bilat, No respiratory distress Cardiovascular: Heart rate NL, Regular rhythm, Heart sounds NL, Cap refill not delayed, Peripheral circulation NL Neurologic: Oriented X3, Speech NL, No sensory deficits, CN II - XII intact 3/5 strength in bilateral lower extremities Interpretation & Diagnostics Lab Results Interpretation Result Diagram: 11/28/16 0714 11/27/16 2359 Test 11/27/16 23:59 11/28/16 01:30 Prothrombin Time 10.2sec (8.1-12.5) Prothromb Time International Ratio 0.95ratio Activated Partial Thromboplast Time 32.3sec (22.8-33.0) Pro-B-Type Natriuretic Peptide 1008pg/mL (0-210) Alcohols < 10mg/dL (0-10) Urine Color Yellow (YELLOW) Urine Appearance Clear (CLEAR,HAZY) Urine pH 5.0 (5.0-8.0) Urine Specific [place] 1.012 (1.003-1.035) Urine Protein 30mg/dL (NEG,TRACE) Urine Glucose (UA) 100mg/dL (NEGATIVE) Urine Ketones Negativemg/dL (NEGATIVE) Urine Occult Blood Negative (NEGATIVE) Urine Nitrite Negative (NEGATIVE) Urine Bilirubin Negative (NEGATIVE) Urine Urobilinogen Normalmg/dL (NORMAL) Urine Leukocyte Esterase Negative (NEGATIVE) Urine RBC 0-2/hpf (0-2) Urine WBC 0-5/hpf (0-5) Urine Epithelial Cells Occasional/hpf (NONE-MOD) Urine Crystals None seen (NONE SEEN) Urine Bacteria None/hpf (NONE-FEW) Urine Hyaline Casts None/lpf (NONE) Urine Granular Casts None seen (NONE SEEN) Urine Waxy Casts None seen (NONE SEEN) Urine Red Blood Cell Casts None seen (NONE SEEN) Urine White Blood Cell Casts None seen (NONE SEEN) Urine Mucus None seen (None Seen) Urine Trichomonas None seen (NONE SEEN) Urine Yeast None (NONE SEEN) Urine Culture Reflexed Not indicated General Lab Results Interp 1: Troponin # 1 elevated ECG Interpretation Time: 23:56 Interpreted by: ED physician Normal ECG Interpretation: Normal rate (77), Normal sinus rhythm, No change from prior ECGs (07/28/15) BMP / CMP Interpretation BUN elevated X-Ray Chest Interpretation Chest Xray Interpretation: IMPRESSION: Atelectatic streaks bilateraly. Nothing acute. Interpretation / Wet Read by: Wet read ED physician Re-Eval/Medical Decision Med Decision/Clinical Course 61-year-old recently discharged from the hospital with acute kidney injury and generalized weakness, presents now with progression of his weakness and loss of ambulation, worsening of his acute kidney injury, which had resolved. Unable to ambulate here. Admitted for further evaluation and management. Hydration is problematic with his history of edema and congestive heart failure. However, his B1 is reasonable ninety-seven and his creatinine again was in the mid twos. He is transported in stable condition. Source of Hx: Old records Consultation : Referral / Consult Name: Miladis Johnson DO Consulted With: Hospitalist Call Returned at: 02:57 [place] Worker: Will see patient, Agrees with eval, Agrees with plan, Accepts admit Note: Discussed pt condition. Accepts admit. Counseled Regarding: Diagnosis, Lab results Discharge & Departure Primary Impression: Ambulatory dysfunction Additional Impressions: Chronic renal insufficiency Weakness Acute on chronic renal failure Elevated troponin Disposition: ADMITTED TO HOSPITAL Discharge Condition All VS Reviewed: Yes Condition: Improved Referrals: Audie Collins MD (PCP) Mery Attestation Portions of this note were transcribed by Renetta Cabezas. I, Dr. Murillo personally performed the history, physical exam and medical decision-making; I reviewed and confirmed the accuracy of the information in the transcribed note. Signed by: Mery Samuel, 11/28/16 and 0546. copies to: Audie Collins MD, Christopher W MD Nov 27, 2016 23:16 RENETTA CABEZAS Nov 27, 2016 23:26 1.012 (1.003-1.035) Urine Protein 30mg/dL (NEG,TRACE) Urine Glucose (UA) 100mg/dL (NEGATIVE) Urine Ketones Negativemg/dL (NEGATIVE) Urine Occult Blood Negative (NEGATIVE) Urine Nitrite Negative (NEGATIVE) Urine Bilirubin Negative (NEGATIVE) Urine Urobilinogen Normalmg/dL (NORMAL) Urine Leukocyte Esterase Negative (NEGATIVE) Urine RBC 0-2/hpf (0-2) Urine WBC 0-5/hpf (0-5) Urine Epithelial Cells Occasional/hpf (NONE-MOD) Urine Crystals None seen (NONE SEEN) Urine Bacteria None/hpf (NONE-FEW) Urine Hyaline Casts None/lpf (NONE) Urine Granular Casts None seen (NONE SEEN) Urine Waxy Casts None seen (NONE SEEN) Urine Red Blood Cell Casts None seen (NONE SEEN) Urine White Blood Cell Casts None seen (NONE SEEN) Urine Mucus None seen (None Seen) Urine Trichomonas None seen (NONE SEEN) Urine Yeast None (NONE SEEN) Urine Culture Reflexed Not indicated General Lab Results Interp 1: Troponin # 1 elevated ECG Interpretation Time: 23:56 Interpreted by: ED physician Normal ECG Interpretation: Normal rate (77), Normal sinus rhythm, No change from prior ECGs (07/28/15) BMP / CMP Interpretation BUN elevated X-Ray Chest Interpretation Chest Xray Interpretation: IMPRESSION: Atelectatic streaks bilateraly. Nothing acute. Interpretation / Wet Read by: Wet read ED physician Re-Eval/Medical Decision Source of Hx: Old records Consultation : Referral / Consult Name: Miladis Johnson DO Consulted With: Hospitalist Call Returned at: 02:57 [place] Worker: Will see patient, Agrees with eval, Agrees with plan, Accepts admit Note: Discussed pt condition. Accepts admit. Counseled Regarding: Diagnosis, Lab results Discharge & Departure Primary Impression: Ambulatory dysfunction Additional Impressions: Chronic renal insufficiency Weakness Disposition: ADMITTED TO HOSPITAL Discharge Condition All VS Reviewed: Yes Condition: Improved Referrals: Audie Collins MD (PCP) Mery Attestation Portions of this note were transcribed by Renetta Cabezas. I, Dr. Murillo personally performed the history, physical exam and medical decision-making; I reviewed and confirmed the accuracy of the information in the transcribed note. Signed by: Mery Samuel, 11/28/16 and 0546. copies to: Audie Collins MD, Christopher W MD Nov 27, 2016 23:16 RENETTA CABEZAS Nov 27, 2016 23:26 Leon Murillo MD Nov 27, 2016 23:16 RENETTA CABEZAS Nov 27, 2016 23:26
[2016-11-28] VITALS (9 sets, daily range): BP systolic 127–171; BP diastolic 60–86; PULSE 62–81; RESP 15–20; O2SAT 92–96
[2016-11-28 00:13] LABS: BASOPHILS % (AUTO) 0.1 % (0-3); EOSINOPHILS % (AUTO) 1.2 % (0-5); MONOCYTES % (AUTO) 10.3 % (4-12); Mean Corpuscular Hemoglobin 26.1 pg (27.0-35.0); Mean Corpuscular Volume 83.3 fL (81-100); NEUTROPHILS % (AUTO) 79.1 % (40-74); Platelet Count 238 bil/L (150-400)
[2016-11-28 00:41] LABS: INR 0.95 ratio
[2016-11-28 01:06] LABS: Magnesium 1.9 mg/dL (1.6-2.6)
[2016-11-28 01:07] LABS: TROPONIN T 0.041 ug/L (0.0-0.011)
[2016-11-28 01:55] LABS: APPEARANCE,URINE CLEAR (CLEAR,HAZY); COLOR,URINE YELLOW (YELLOW); OCCULT BLOOD,URINE NEGATIVE (NEGATIVE); UROBILINOGEN,URINE NORMAL (NORMAL)
[2016-11-28] MEDS ORDERED: Ondansetron 2 mg/mL 2 mL Inj IVPUSH PRN (04:25)
[2016-11-28] MEDS ORDERED: Alum-Mag Hydrox-Simeth 30 mL Suspension PO PRN (04:25)
--- NOTE | 2016-11-28 06:49 | NUR ---
NOC PT received from the ED for increased weakness over the past 2-3 days. PT was d/c from hospital on 11/24. PT reports that from 11/26 on he was unable to ambulate at all. Baseline pt has diabetic neuropathy in BLE which includes BLE numbness with some foot pain. CUrrently pt reports severe pain to entire BLE that he rates at 7/10. PT was given tylenol and was able to fall asleep as he only had holding orders at the time. PT reports he normally is able to ambulate independently with walker. EMS brought him in. PT is on tele in SR. B/P was hypertensive in the 160's. PT reports baseline tremors intermittently at baseline. THEy were increased this am due to fatigue. PT voids per urinal with assist. Strength to BLE is 3/5. Lungs clear. SKin intact. PT NPO.
[2016-11-28 07:28] LABS: BASOPHILS % (AUTO) 0.1 % (0-3); EOSINOPHILS % (AUTO) 1.4 % (0-5); MONOCYTES % (AUTO) 9.7 % (4-12); Mean Corpuscular Hemoglobin 26.6 pg (27.0-35.0); Mean Corpuscular Volume 83.9 fL (81-100); NEUTROPHILS % (AUTO) 78.1 % (40-74); Platelet Count 206 bil/L (150-400)
[2016-11-28] MEDS ORDERED: Insulin GLARgine 100 Unit/mL Syringe SUBQ ONE (08:20)
[2016-11-28] MEDS ORDERED: Glucose 40% Oral Gel 15 Gm Tube PO PRN (08:20)
[2016-11-28 08:23] LABS: TROPONIN T 0.036 ug/L (0.0-0.011)
[2016-11-28] MEDS: 0.9% Sodium Chloride 1,000 ML IV SCH ×2 (08:34→19:54)
--- NOTE | 2016-11-28 09:14 | DRSVH ---
PROCEDURE: X-RAY CHEST ONE VIEW, PORTABLE ([id number]) INDICATIONS: generalized weakness, history of chf TECHNIQUE: One view of the chest was acquired. COMPARISON: [facility], CR, CHEST 1 VIEW, 11/21/2016, 15:29. Merged With [facility], CR, XR [address] 2VW, 07/28/2015, 10:15. FINDINGS: Surgical changes and devices: None. Lungs and pleura: No pleural effusions or pneumothorax. Diminishing pulmonary edema present with re sidual interstitial opacities within the lung bases. Mediastinum: Mediastinal contours appear normal. Heart size is normal. Bones and chest wall: No suspicious bony lesions. Overlying soft tissues appear unremarkable. IMPRESSION: Resolving edema. Dictated by: Dale GARCIAS Interpreted: Colin Bhat MD on 11/28/2016 at 9:12 Transcribed by: MELLISSA on 11/28/2016 at 9:13 Approved by: Colin Bhat M.D. on 11/28/2016 at 9:47
[2016-11-28] MEDS: Insulin LISPRO 300 Unit/3 mL Inj SUBQ SCH ×3 (13:12→21:31)
--- NOTE | 2016-11-28 13:41 | NUR ---
Social Work: Initial Assessment D: Per EMR review, pt admitted for Loss of Ambulation, Chronic Renal Failure. Pt is [employer] insurance; pt has no LTC insurance or VA benefits. PCP is Audie Collins MD. NOK is Arjun De Guzman, S/o, . Advanced directives completed- SYSTEMS ADMINISTRATOR requested copy for pt's chart. No Readmit score entered at this time. SYSTEMS ADMINISTRATOR met with pt at bedside. Sw role explained and contact info provided. See initial assessment. Pt lives at home in [facility] with his s/o in a single story home. Pt was previously I at baseline and using no DME. Pt has never had HH or SKilled Rehab. Pt continues to drive. Pt states that he has been experiencing decreased level of mobility over the last 2-3 days. Pt has a PT evaluation ordered. A: Pt who was previously I at baseline. P: Evolving; SYSTEMS ADMINISTRATOR to continue to follow pt's clinical progress and assist with discharge planning as ordered by . RICKY Mcdonnell Addendum: 11/28/16 at 1352 by KARLEY SHIELDS Amended: Links added.
--- NOTE | 2016-11-28 13:42 | DRSVH ---
PROCEDURE: MRI LUMBAR SPINE WITHOUT CONTRAST ([id number]) INDICATIONS: back pain and leg weakness TECHNIQUE: Noncontrast sagittal T1 spin echo and T2 fast echo, coronal T2, sagittal STIR, axial T1 and T2 fast s pin echo through the lumbar spine. COMPARISON: [facility], , SPINE LUMB 2 OR 3VW, 09/05/2014, 14:29. FINDINGS: Image quality: Excellent. Alignment and Curvature: There is normal bony alignment. Bone Marrow: Marrow is of normal overall signal. No acute vertebral body compression fractures. Spinal Cord: Conus medullaris terminates at the L1-L2 disc space level. Visualized cord demonstrate s normal signal and size. Paraspinous Soft Tissues: No paravertebral masses. There is moderate ill-defined FLAIR signal eleva tion within the posterior paraspinous soft tissues at the L3-L5 level. L1-L2: Disc desiccation and diffuse disc bulge. Mild canal stenosis. No foraminal stenosis. L2-L3: Disc desiccation and diffuse disc bulge. Bilateral facet hypertrophy. Mild canal stenosis. Mil d foraminal stenosis bilaterally. L3-L4: Disc desiccation and diffuse disc bulge. Bilateral facet hypertrophy. Mild canal stenosis. Mil d bilateral foraminal stenosis. L4-L5: Disc desiccation and diffuse disc bulge. Bilateral facet hypertrophy. Epidural lipomatosis. Mi ld canal stenosis. Mild bilateral foraminal stenosis. L5-S1: Mild diffuse disc bulge. Bilateral facet hypertrophy. Mild canal stenosis. Mild foraminal sten osis bilaterally. IMPRESSION: 1. Elevated STIR signal intensity within the posterior paraspinous soft tissues of the mid/lower lumb ar spine, possibly related to muscle strain and/or denervation sequelae. 2. Otherwise negative evaluation of the lumbar spine. Mild multilevel canal and foraminal stenoses se condary to disc and facet disease. No evidence of neural impingement. Dictated by: Alexandra Peguero M.D. on 11/28/2016 at 13:23 Approved by: Alexandra Peguero M.D. on 11/28/2016 at 13:40
--- NOTE | 2016-11-28 15:05 | PCM.HPMED ---
Subjective Date of Service Nov 28, 2016 Primary Provider: Admitting Physician: Miladis Johnson DO Primary Care Physician: Audie Collins MD Attending Physician: Miladis Johnson DO Admit Status: From the Emergency Department, [facility] Telemetry Chief Complaint: Acute renal failure, as well as acute bilateral leg weakness and exacerbation of chronic neuropathic pain History of Present Illness: This is a pleasant 61-year-old gentleman who returns to the hospital after having just been discharged on November 24. He was admitted from November 21 through November 24 for AKA in context of chronic kidney disease stage III as well as chronic that he is noticed to and anemia. The patient has meloxicam and lisinopril held and with fluid resuscitation normalized his creatinine. He is on chronic gabapentin for his neuropathy. He discharged home with resumption of lisinopril as well as his gabapentin but over last day and a half has had progressive weakness of both legs equally as well as increased aching of the legs bilaterally. He does have chronic neuropathic pain and has a hard time describing with his acute pain is different in nature. In any case any movement of his legs on either side increases the pain and holding them still tends to decrease the pain. He has some lower back pain and cannot say if this is old or new. He denies any distinct radiation of pain from the back to the lower extremities. He has been constipated for 3 days. He denies any urinary retention or incontinence. No recent diarrhea. No fevers or chills. No skin rash or lesions of the legs. He does feel like both legs were equally weak week including the feet and lower legs and thighs. He denies any leg numbness. Review of Systems: No fevers or chills, anxiety or depression. No cold symptoms. He denies diarrhea. No rhinorrhea or sore throat. All else reviewed and otherwise negative except as noted in history of present illness. Allergies Coded Allergies: No Known Allergies (Unverified , 11/27/16) Home Medications Scheduled Aspirin Chew (Aspirin Chew) 81 Mg Tablet 81 MG PO DAILY Atorvastatin Calcium (Atorvastatin Calcium) 40 Mg Tablet 40 MG PO DAILY Calcitriol (Rocaltrol) 0.25 Mcg Capsule 0.25 MCG PO DAILY Clopidogrel (Clopidogrel) 75 Mg Tablet 75 MG PO DAILY Furosemide (Furosemide) 80 Mg Tab 80 MG PO BID Gabapentin (Gabapentin) 300 Mg Capsule 300 MG PO BID Hydralazine (Hydralazine) 100 Mg Tablet 100 MG PO TID Insulin Aspart (NovoLOG U-100 Pen) 100 Unit/Ml Insuln.pen 10 UNITS SC TIDAC Insulin Glargine (Lantus U100 Insulin Vial) 100 Unit/Ml Vial 50 UNIT SUBQ HS Isosorbide DN (Isosorbide DN) 20 Mg Tablet 40 MG PO TID Lisinopril (Lisinopril) 2.5 Mg Tablet 2.5 MG PO DAILY Metoprolol Succinate ER (Metoprolol Succinate ER) 25 Mg Tab.er.24h 25 MG PO DAILY Omeprazole (Omeprazole) 20 Mg Capsule.dr 20 MG PO DAILY Scheduled PRN Nitroglycerin SL (Nitrostat) 0.4 Mg Tab.subl 0.4 MG SL Q5MIN PRN PRN For Chest Pain PMH Recent admission for acute kidney injury, improved Chronic kidney disease stage III Diabetes mellitus 2. Diabetic nephropathy Diabetic peripheral neuropathy Anemia of chronic disease Coronary artery disease Dyslipidemia Obstructive sleep apnea Surgical History Tonsillectomy Family History Positive for diabetes, father Social History Hx Alcohol Use: No Hx Substance Use: No Hx Tobacco Use: No Smoking Status: Never Smoker Living Arrangement: with Family Exam Vital Signs Vital Sign - Last Date Time Temp Pulse Resp B/P Pulse Ox O2 Delivery O2 Flow Rate FiO2 11/28/16 13:23 37.4 74 18 152/83 92 Room Air Intake and Output 11/27/16 11/27/16 11/28/16 Cumulative From/Thru 15:00 23:00 07:00 11/27/16 23:01 - 11/28/16 06:35 Intake Total 0 ml 0 ml Output Total 800 ml 800 ml Balance -800 ml -800 ml Intake Oral 0 ml 0 ml Output Urine Total 800 ml 800 ml # Bowel Movements 0 0 Exam Oriented 3. No distress. Fluent speech. Normal affect. Normal skull. Normal nose and ears. Anicteric sclera, symmetric pupils Oropharynx is unremarkable, no facial droop. Neck is supple, normal thyroid. No adenopathy. Lungs are clear, normal effort rate. Heart is regular without murmur gallop or rub. Abdomen soft, nondistended or tender. Extremities are free of pedal edema. Good radial and pedal pulses. Skin is free of rash, lesions. No petechiae or ecchymosis. Joints are grossly normal. Cranial nerves are grossly normal. Motor strength is normal in both arms. Both legs. He diffusely weak in fact he has a hard time moving the legs at the hips knees or ankles. He can wiggle his toes. Pedal pulses bilaterally. He has normal sensation bilaterally. Palpation of the legs and a variety of spots increases his pain. Lab and Diagnostics Result Diagram: 11/28/1614 11/28/16713 X-Rays, CTs and MRIs Chest x-ray reveals pulmonary edema 12-lead ECG ECG reveals sinus rhythm with nonspecific ST segment changes likely consistent with repolarization. Assessment & Plan 1. Acute kidney injury, POA. This likely relates to prerenal status as well as resumption of lisinopril and possibly gabapentin. We will hold these medications for now and resuscitate and follow carefully. Recent renal ultrasound was unremarkable will not repeat this. 2. Bilateral leg pain and weakness. POA. The patient does have a history of neuropathy related to his diabetes but also has symptoms suggestive of possible lower back problem and perhaps even a lumbar disc with central protrusion and bilateral radiculopathy. We will obtain an MRI to rule out disc herniation and follow clinically. Physical therapy. 3. Hyperglycemia associated with diabetes mellitus 2, POA. We will resume his usual Lantus and lispro with correctional component and aggressive fluid resuscitation. 4. Chronic anemia chronic disease, POA. Stable follow clinically. 5. CAD, POA. Patient does not know male with troponins as well as possible pulmonary edema unclear significance. We will obtain a 2-D echo to assess ventricular function 6. Obstructive sleep apnea, POA. Usual measures and follow clinically. Patient's fis full resuscitation Inpatient status with an estimated length of stay of 2 nights Pain Evaluation: Adequate Pain Control Resuscitation Status: CPR: Attempt Resuscitation Time spent 40 minutes Adolph Pereyra MD Nov 28, 2016 15:05
[2016-11-28] MEDS: Pantoprazole 40 mg ER24 Tablet PO SCH (17:14)
[2016-11-28] MEDS ORDERED: predniSONE 20 mg Tablet PO ONE (17:15)
[2016-11-28] MEDS: MeTOProlol XL 25 mg ER24 Tablet PO SCH (17:31)
--- NOTE | 2016-11-28 19:28 | NUR ---
Pain/BP/Constipation Pt reporting shooting/achy pain in LE bilaterally, Pt given PRN IV morphine dose X3 today which Pt reported as making the shooting pain tolerable. Pt's BP trended up today, afternoon BP 171/80, made aware, numerous of Pt's home meds resumed including several cardiac medications, Pt received PO metoprolol and tara to receive hydralazine and isosorbide doses this evening, yared LEE RN made aware. Pt reporting no BM in 3 days and significant other reported no BM for Pt in a week, made aware, PRN BM medications added to Pt's eMAR prior to shift change and pending verification, yared LEE RN made aware.
[2016-11-28] MEDS: Insulin GLARgine 100 Unit/mL Syringe SUBQ SCH (21:30)
[2016-11-29] VITALS (7 sets, daily range): BP systolic 147–168; BP diastolic 72–88; PULSE 60–80; RESP 15–18; O2SAT 93–96
[2016-11-29] MEDS: 0.9% Sodium Chloride 1,000 ML IV SCH ×3 (06:00→17:54)
--- NOTE | 2016-11-29 06:41 | NUR ---
Pain/Constipation/Movement Pt did have pain at HS and was given 1mg morphine. 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 Pt was offered docusate for the constipation but the pt declined. Pt did talk with me this morning and mentioned that he might be able to have a bowel movement today. Pt is able to move his legs slightly [id number] but is still unable to bend his legs or more his legs in an up-and-down motion.
[2016-11-29] MEDS ORDERED: Insulin GLARgine 100 Unit/mL Syringe SUBQ ONE (07:45)
--- NOTE | 2016-11-29 08:03 | PCM.PNMED ---
Subjective Date of Service Nov 29, 2016 Subjective Patient is able to move his legs today. This is a dramatic improvement for him he is very excited. He still has not had a bowel movement for several days. His blood sugars are somewhat high. Denies any chest pain, palpitations or dyspnea. No nausea or abdominal pain. No overnight events Exam Vital Signs Vital Sign - Last Date Time Temp Pulse Resp B/P Pulse Ox O2 Delivery O2 Flow Rate FiO2 11/29/16 05:48 62 11/28/16 23:06 37.3 20 144/77 94 CPAP Intake and Output 11/28/16 11/28/16 11/29/16 Cumulative From/Thru 15:00 23:00 07:00 11/27/16 23:01 - 11/29/16 06:44 Intake Total 2144 ml 1449 ml 3593 ml Output Total 2100 ml 750 ml 3650 ml Balance 44 ml 699 ml -57 ml Intake Oral 1357 ml 200 ml 1557 ml IV Total 787 ml 1249 ml 2036 ml Output Urine Total 2100 ml 750 ml 3650 ml # Bowel Movements 0 0 Exam Alert and oriented -3, no distress. Fluent speech Anicteric sclera. Lungs are clear with normal rate and effort Heart is regular without murmur gallop or rub Abdomen soft nontender, flat Extremities are free of edema. Skin is free of rash or lesions. He is able to lift right leg off the bed and can almost lift left leg off the bed at the hip. He is able to move all his toes on both feet. IVs and Medications Medications Reviewed: Medications were reviewed in detail Lab and Diagnostics Result Diagram: 11/28/1614 11/28/16713 X-Rays, CTs and MRIs Chest x-ray reveals pulmonary edema 12-lead ECG ECG reveals sinus rhythm with nonspecific ST segment changes likely consistent with repolarization. Assessment & Plan 1. Acute kidney injury, POA. Lisinopril, continue fluids and check creatinine now. 2. Bilateral leg pain and weakness. POA, much improved.. The patient does have a history of neuropathy related to his diabetes but also has symptoms suggestive of possible lower back problem and perhaps even a lumbar disc with central protrusion and bilateral radiculopathy. We will obtain an MRI to rule out disc herniation and follow clinically. Physical therapy. And continue prednisone for possible acute radiculopathy. MRI does reveal multiple disc bulges and the possibility for a radicular syndrome. There is no cord intrusion. 3. Hyperglycemia associated with diabetes mellitus 2, POA and persistent. We will add an additional 10 of Lantus this morning. 4. Chronic anemia chronic disease, POA. Stable follow clinically. 5. CAD, POA. Patient does not know male with troponins as well as possible pulmonary edema unclear significance. We will obtain a 2-D echo to assess ventricular function 6. Obstructive sleep apnea, POA. Usual measures and follow clinically. Patient's fis full resuscitation Inpatient status with an estimated length of stay of 2 nights Resuscitation Status: CPR: Attempt Resuscitation Adolph Pereyra MD Nov 29, 2016 08:03
[2016-11-29 08:24] LABS: Mean Corpuscular Hemoglobin 26.2 pg (27.0-35.0); Mean Corpuscular Volume 83.3 fL (81-100)
[2016-11-29] MEDS: MeTOProlol XL 25 mg ER24 Tablet PO SCH (08:30)
[2016-11-29] MEDS: Pantoprazole 40 mg ER24 Tablet PO SCH (08:30)
[2016-11-29 08:43] LABS: TROPONIN T 0.013 ug/L (0.0-0.011)
[2016-11-29] MEDS: Insulin LISPRO 300 Unit/3 mL Inj SUBQ SCH ×4 (08:46→22:13)
--- NOTE | 2016-11-29 13:26 | NUR ---
Evaluation completed. Please go to "Notes" then click on "Assessments and Notes" (bottom left corner of screen). Then select appropriate discipline tab on top of screen.
--- NOTE | 2016-11-29 18:08 | NUR ---
ROM/BM Pt reporting increased ROM and decreased pain in LE bilaterally today, Pt able to work with PT and stand X2. Pt only required PRN morphine X1 today. Pt still constipated this am, Pt sat on commode while working with PT and able to have a formed/brown BM with intervention.
[2016-11-29] MEDS: Insulin GLARgine 100 Unit/mL Syringe SUBQ SCH (22:11)
[2016-11-30] VITALS (7 sets, daily range): BP systolic 136–157; BP diastolic 67–84; PULSE 63–86; RESP 12–18; O2SAT 94–98
[2016-11-30 03:00] LABS: Mean Corpuscular Hemoglobin 25.7 pg (27.0-35.0); Mean Corpuscular Volume 83.9 fL (81-100)
[2016-11-30] MEDS: 0.9% Sodium Chloride 1,000 ML IV SCH (03:55)
--- NOTE | 2016-11-30 05:21 | NUR ---
Pain Patient reporting BLE pain once overnight; PRN morphine given per orders. Patient subsequently asleep for the majority of the night. No further complaints of pain. Continue to monitor.
[2016-11-30] MEDS: Pantoprazole 40 mg ER24 Tablet PO SCH (07:18)
[2016-11-30] MEDS: MeTOProlol XL 25 mg ER24 Tablet PO SCH (07:31)
[2016-11-30] MEDS: Insulin LISPRO 300 Unit/3 mL Inj SUBQ SCH ×4 (07:37→21:13)
[2016-11-30] MEDS ORDERED: Insulin GLARgine 100 Unit/mL Syringe SUBQ ONE (11:45)
[2016-11-30] MEDS ORDERED: predniSONE 20 mg Tablet PO ONE (11:45)
--- NOTE | 2016-11-30 12:40 | PCM.PNMED ---
Subjective Date of Service Nov 30, 2016 Subjective He is doing a lot better today. He is legs are looking better. Is able to walk across the room with physical therapy and use of walker. He denies any foot drop. Less pain in the legs as well. No chest pain, cough or nausea. No abdominal pain. Patient continues. Polymenorrhea with dopamine. No overnight events Exam Vital Signs Vital Sign - Last Date Time Temp Pulse Resp B/P Pulse Ox O2 Delivery O2 Flow Rate FiO2 11/30/16 11:20 36.9 86 16 148/84 97 Room Air Intake and Output 11/29/16 11/29/16 11/30/16 Cumulative From/Thru 15:00 23:00 07:00 11/27/16 23:01 - 11/30/16 05:26 Intake Total 1855 ml 1131 ml 6579 ml Output Total 1500 ml 5150 ml Balance 355 ml 1131 ml 1429 ml Intake Oral 892 ml 2449 ml IV Total 963 ml 1131 ml 4130 ml Output Urine Total 1500 ml 5150 ml # Bowel Movements 0 Exam Alert and oriented -3, no distress. Fluent speech Anicteric sclera. Lungs are clear with normal rate and effort Heart is regular without murmur gallop or rub Abdomen soft nontender, flat Extremities are free of edema. Skin is free of rash or lesions. He is able to dorsi and plantar flex both feet. He is having a hard time doing a straight leg raise but can get both legs off the bed. He has flat reflexes in the knees. Good pedal pulses. IVs and Medications Medications Reviewed: Medications were reviewed in detail Lab and Diagnostics Result Diagram: 11/30/1622411/30/16224 X-Rays, CTs and MRIs Chest x-ray reveals pulmonary edema 12-lead ECG ECG reveals sinus rhythm with nonspecific ST segment changes likely consistent with repolarization. Assessment & Plan 1. Acute kidney injury, POA. We will continue to hold lisinopril. We will stop fluids and follow creatinine. The patient also has an element of chronic kidney disease. 2. Bilateral leg pain and weakness. POA, much improved.. The patient does have a history of neuropathy related to his diabetes but also has symptoms suggestive of possible lower back problem and perhaps even a lumbar disc with central protrusion and bilateral radiculopathy. We will obtain an MRI to rule out disc herniation and follow clinically. Physical therapy. And continue prednisone for possible acute radiculopathy. MRI does reveal multiple disc bulges and the possibility for a radicular syndrome. There is no cord intrusion. The patient appears to be improving dramatically on oral prednisone which is consistent with a lumbar radiculopathy. We will continue the current management. Physical therapy recommends possible SNIF placement all the patient is improving rapidly we will continue to treat him with close surveillance for another 24-48 hours. 3. Hyperglycemia associated with diabetes mellitus 2, POA and persistent. We will give additional 10 of Lantus this morning and increase the at bedtime Lantus from 50-60. 4. Chronic anemia chronic disease, POA. Stable follow clinically. 5. CAD, POA. This appears to be stable. No current changes. 6. Obstructive sleep apnea, POA. Usual measures and follow clinically. Patient's fis full resuscitation Inpatient status with an estimated length of stay of 2 nights Resuscitation Status: CPR: Attempt Resuscitation Adolph Pereyra MD Nov 30, 2016 12:39
--- NOTE | 2016-11-30 15:52 | NUR ---
Social Work Note: Continued Discharge Planning Data& Assessment: Per MD in morning rounds, pt is not medically ready for discharge at this time. PT is recommending SNF, however, MD believes pt may progress to be able to go home with home health services. SW to await further medical progression and MD orders for SNF vs. HH. SW to continue to follow. Plan: Anticipated discharge home with home health services pending MD orders and pt medical progression. SW to continue to follow. RICKY Waterman
--- NOTE | 2016-11-30 18:24 | NUR ---
Blood sugars Pt's blood sugars remain high in the upper 200s/300s today, made aware. 10 unit prandial insulin dose added to sliding scale insulin, Pt's long acting HS dose increased to 60 units, and one time 15 unit dose of long acting ordered. Pt's blood sugar 265 prior to dinnertime, Pt verbalized that he had a good appetite, Pt given prandial insulin dose in addition to sliding scale coverage.
[2016-11-30] MEDS ORDERED: Insulin GLARgine 100 Unit/mL Syringe SUBQ SCH (21:00)
[2016-12-01] VITALS (9 sets, daily range): BP systolic 116–170; BP diastolic 65–80; PULSE 61–77; RESP 16–20; O2SAT 93–98
--- NOTE | 2016-12-01 06:50 | NUR ---
BGs/BP/Mobility/Pain Pt's BGs continue to stay in the 300s at this time. Pt received 3Units correctional Lispro insulin at HS along with 60 Units of Lantus. Pt's SBP has remained in the 150s. Pt was able to get onto BSC with a 2 person assist and a FWW by using the bed as a lift from [id number]. Pt's legs are still weak and pt does c/o bilateral knee pain. Pt says that the back pain has greatly improved. Pt uses ice packs on knees with some relief of the pain. Pt had requested dilaudid IVP for the pain but when I go into the room the pt is sleeping so none has been given.
[2016-12-01] MEDS: Pantoprazole 40 mg ER24 Tablet PO SCH (08:30)
[2016-12-01] MEDS: MeTOProlol XL 25 mg ER24 Tablet PO SCH (09:14)
[2016-12-01] MEDS: Insulin LISPRO 300 Unit/3 mL Inj SUBQ SCH ×4 (09:16→21:58)
[2016-12-01] MEDS ORDERED: Insulin GLARgine 100 Unit/mL Syringe SUBQ ONE ×2 (11:30→13:20)
--- NOTE | 2016-12-01 11:33 | PCM.PNMED ---
Subjective Date of Service Dec 01, 2016 Subjective His leg pain and weakness is doing much better. He was able to get out of bed unassisted with standby and to all walker in the hallway. He notes improved movement of his feet came in regards plantar and dorsiflexion as well as better movement at the knees with extension. He has intermittent lower back pain still. He is having some hyperglycemia relating to his oral prednisone. No nausea, he slept well last night. No dyspnea. Bowel movement yesterday. No overnight events. Exam Vital Signs Vital Sign - Last Date Time Temp Pulse Resp B/P Pulse Ox O2 Delivery O2 Flow Rate FiO2 12/01/16 11:15 68 12/01/16 09:05 CPAP/BIPAP 12/01/16 09:05 36.7 18 152/65 95 Intake and Output 11/30/16 11/30/16 12/01/16 Cumulative From/Thru 15:00 23:00 07:00 11/27/16 23:01 - 12/01/16 06:01 Intake Total 350 ml 1740 ml 400 ml 9069 ml Output Total 1925 ml 2525 ml 825 ml 12506 ml Balance -1575 ml -785 ml -425 ml -1356 ml Intake Oral 350 ml 1740 ml 400 ml 4939 ml IV Total 4130 ml Output Urine Total 1925 ml 2525 ml 825 ml 24630 ml # Bowel Movements 0 Exam Alert and oriented -3, no distress. Fluent speech Anicteric sclera. Lungs are clear with normal rate and effort Heart is regular without murmur gallop or rub Abdomen soft nontender, flat Extremities are free of edema. Skin is free of rash or lesions. The patient is able to lift both legs off from a chair at the hip. He also On both lower extremities at the knees up to about 45 of gravity and has normal plantar and dorsiflexion. IVs and Medications Medications Reviewed: Medications were reviewed in detail Lab and Diagnostics Result Diagram: 11/30/1622411/30/16224 X-Rays, CTs and MRIs Chest x-ray reveals pulmonary edema 12-lead ECG ECG reveals sinus rhythm with nonspecific ST segment changes likely consistent with repolarization. Assessment & Plan 1. Acute kidney injury, POA. We will continue to hold lisinopril. Awaiting creatinine today. No other changes to medical management. 2. Bilateral leg pain and weakness. Presumed lumbar radiculopathy . POA, much improved.. The patient does have a history of neuropathy related to his diabetes but also has symptoms suggestive of possible lower back problem and perhaps even a lumbar disc with central protrusion and bilateral radiculopathy. MRI revealed lumbar stenosis and multiple disc herniations but no cord encroachment. The patient was started on prednisone for possible lumbar radiculopathy associated with this. He has done very well on his strength is improved remarkably in 3 days with steroids. He was felt to be a candidate for SNIF 2 days ago but is clearly able to discharge home within the next 1 or 2 days. He may require use of a walker which he already has not home and/or physical therapy. 3. Hyperglycemia associated with diabetes mellitus 2, POA and persistent. We will give additional 20 of Lantus this morning to 70 4. Chronic anemia chronic disease, POA. Stable follow clinically. 5. CAD, POA. This appears to be stable. No current changes. 6. Obstructive sleep apnea, POA. Usual measures and follow clinically. Patient's fis full resuscitation Inpatient status with an estimated length of stay of 2 nights Resuscitation Status: CPR: Attempt Resuscitation Adolph Pereyra MD Dec 01, 2016 11:33
[2016-12-01 11:52] LABS: Mean Corpuscular Hemoglobin 25.8 pg (27.0-35.0); Mean Corpuscular Volume 83.4 fL (81-100)
[2016-12-01] MEDS: predniSONE 20 mg Tablet PO SCH (12:53)
--- NOTE | 2016-12-01 18:08 | NUR ---
Ambulation/Pain No reports of chest pain/pressure/discomfort. Tele SR 60s-70s with occasional PVC. No reports of SOB at rest, reports mild SOB with movement. SPO2 on RA 95%, patient has home CPAP machine at bedside for AVERY. No reports abdominal pain, denies nausea and vomiting, BM today.Voiding yellow urine without complication. Patient reported 3-4/10 back and leg pain throughout shift, reported that he felt he is getting stronger. Up 1PA with FWW vs 2PA. Patient did report 7/10 pain after working with PT.
[2016-12-01] MEDS ORDERED: Insulin GLARgine 100 Unit/mL Syringe SUBQ SCH (21:00)
--- NOTE | 2016-12-01 22:18 | NUR ---
Elevated blood sugar Pt's blood sugar was 465. Covered with Lantus and sliding scale insulin Pt is thirsty. Drinking water. Pt understands that his blood sugar will be rechecked at 0300. Will cont to monitor
[2016-12-02 00:41] VITALS: BP 175/84; PULSE 66
--- NOTE | 2016-12-02 00:44 | NUR ---
Elevated Blood pressure Pt had two readings of systolic BP greater than 170. Informed MD via [employer] paging. Pt is asymptomatic.
[2016-12-02 02:45] LABS: Mean Corpuscular Hemoglobin 25.9 pg (27.0-35.0)
[2016-12-02 03:33] VITALS: BP 157/82; PULSE 58; RESP 16; O2SAT 97
[2016-12-02 08:30] VITALS: PULSE 84
[2016-12-02 08:34] VITALS: BP 145/82; PULSE 66; RESP 16; O2SAT 96
[2016-12-02] MEDS: predniSONE 20 mg Tablet PO SCH (08:46)
[2016-12-02] MEDS: Insulin LISPRO 300 Unit/3 mL Inj SUBQ SCH ×2 (08:46→12:27)
[2016-12-02] MEDS: Pantoprazole 40 mg ER24 Tablet PO SCH (08:46)
[2016-12-02] MEDS: MeTOProlol XL 25 mg ER24 Tablet PO SCH (08:47)
[2016-12-02] MEDS ORDERED: PRE10 PO (10:35)
[2016-12-02] MEDS ORDERED: OXYC-466 PO (10:35)
--- NOTE | 2016-12-02 10:42 | PCM.DIMED ---
Discharge Instructions Date of Service Dec 02, 2016 Dates of Hospitalization Nov 28, 2016 at 03:07 Discharge Diagnosis Discharge Diagnosis Lumbosacral radiculopathy; degenerative joint disease; type II diabetes mellitus ; acute kidney injury; chronic kidney disease Medication Instructions Additional med instructions The prescription for prednisone is given which includes a gradual taper over the next 2 weeks. A prescription for Percocet is given to assist with short- term pain control. You should take laxatives fiber or other strategies to keep your bowels moving when taking Percocet. While taking prednisone your blood sugars will be elevated. You should continue Lantus 70 units at bedtime until your morning sugars are below 130, then you may return to usual 50 units. You should increase Humalog to 15 units per meal. You may take an additional 5 units if blood sugar prior to the meal is above 180. I encourage you to check your blood sugar 2 hours after the meal. It should be below 180 at that time. If not increase the amount of Humalog you take with each meal. In the return Humalog dosing to your normal level when you are off prednisone. Diet Discharge Diet: Diabetic Activity Discharge Activity: Home Health Phyical Therapy (health physical therapy 3 times per week for the next 4 weeks is recommended) Call your provider Call your provider for: Other (for Isabel ambulating urinating or moving her bowels.) Patient Instructions Patient Instructions Continue with normal physical activity, as advised by your physical therapist. Maintain good hydration, preferably with water. Follow-up plan See your primary care doctor for further evaluation of your spinal disease, as well as chronic kidney disease, and diabetes management. Record your blood sugars and bring these to your follow-up PCP appointment. Follow-up Provider: Audie Collins MD Follow-up with PCP in: 1 week Armando Foley MD Dec 02, 2016 10:41
--- NOTE | 2016-12-02 11:11 | DRSVH ---
[facility] [address] [place] [address] Echocardiogram Report Name: ENZO NUNES Study Date: 11/29/2016 Height: 71 in Hospital Exam Location: [facility] Weight: 292 lb Gender: Male BSA: 2.5 m2 : 1955 Age: 61 yrs BP: 144/77 mmHg Reason For Study: TROPONONEMIA Ordering Physician: RICKEY MICHAEL Performed By: Mars Sharma Referring Physician: Svetlana WHITE Interpretation Summary The left ventricle is normal in size, wall thickness, and systolic function without any focal wall motion abnormalities. The ejection fraction is estimated to be 60-65%. Assessment of diastolic parameters indicates a relaxation abnormality of the left ventricle, consistent with normal filling pressures. No significant changes since 01/02/2016. The right ventricle is normal in size and function. Pulmonary artery pressures cannot be estimated because of the lack of a measurable TR jet velocity. Both atria are normal in size. There is no significant valvular heart disease. The ascending aorta is mildly enlarged. Procedure: A two-dimensional transthoracic echocardiogram with color flow and Doppler was performed. The study quality was technically difficult. Comparison is made with the echocardiogram of 01/02/16. The subcostal views were difficult to obtain and are suboptimal in quality. The patient was in normal sinus rhythm during the exam. Left Ventricle: The left ventricle is normal in size, wall thickness, and systolic function without any focal wall motion abnormalities. The ejection fraction is estimated to be 60-65%. Assessment of diastolic parameters indicates a relaxation abnormality of the left ventricle, consistent with normal filling pressures. Right Ventricle: The right ventricle is normal in size and function. Atria: Both atria are normal in size. The interatrial septum is intact with no evidence for an atrial septal defect. Mitral Valve: The mitral valve is normal in structure and function. There is trace mitral regurgitation. Aortic Valve: The aortic valve opens well. No aortic regurgitation is present. Tricuspid Valve: The tricuspid valve is normal in structure and function. No tricuspid regurgitation. Pulmonary artery pressures cannot be estimated because of the lack of a measurable TR jet velocity. Pulmonic Valve: The pulmonic valve is not well visualized. There is no significant valvular heart disease. Great Vessels: The aortic root is normal size. The ascending aorta is mildly enlarged. The pulmonary artery is normal size. The inferior vena cava was not well visualized. Pericardium/ Pleura There is no pericardial effusion. There is no pleural effusion. MMode/2D Measurements & Calculations LVIDd: 5.6 cm RA long axis asc Aorta LVIDs: 3.1 cm LA A2 area: 21.5 cm Diam: 3.7 cm FS: 44.5 % LA A4 area: 25.2 cm RA area IVSd: 0.87 cm LA length (vol): 6.3 cm LVPWd: 0.86 cm LA vol: 72.6 ml : 16.7 cm LA vol index RA vol: 42.9 ml RA : 29.3 ml/m2 : 17.3 mm2 LV richards. diameter/BSA LV sys. diameter/BSA (cm/m^2): 2.3 (cm/m^2): 1.3 Doppler Measurements & Calculations Ao V2 max MV E max milo MV E/A: 0.79 PA V2 max : 174.1 cm/sec : 88.8 cm/sec Med Peak E' Milo : 106.3 cm/sec Ao max PG MV A max milo PA mean PG : 12.1 mmHg : 111.8 cm/sec E/E' med: 17.9 Ao mean PG MV A dur: 0.15 sec PA Accel Time : 6.4 mmHg : 0.12 sec MV dec time Ao V2 mean PA V2 mean : 0.26 sec : 118.1 cm/sec : 78.0 cm/sec Ao V2 VTI: 35.4 cm PA pr(Accel) : 27.6 mmHg Reading Physician:GEORGIANA
[2016-12-02 11:14] VITALS: PULSE 72
--- NOTE | 2016-12-02 13:31 | NUR ---
Social Work Note: Discharge Data& Assessment: EMR reviewed. Per pt is medically ready to discharge home via POV with [facility] PT to follow up on 12/10/2016. ADAM met with pt at bedside to confirm discharge plan and assess for any unmet needs. SW received order to help arrange home health PT services for pt. SW presented HH list to pt and pt S/O at bedside. Pt did not have a preference and agreed to refer to who ever is able to take his insurance. SW spoke with Olivia from [facility] who explained they do not have a [employer], SW spoke with Dara from [facility] who explained they are not able to accept pt at this time. SW spoke with Raya from [facility] who confirmed they would be able to accept pt, but he would not be seen until 12/10/2016, one week from today. Pt and MD notified. Pt and MD agreeable to plan. Pt S/O explained he would ensure pt is moving around at home in order to not lose strength. ADAM faxed F2F to Raya from [facility]. PT also recommended a FWW. Pt S/O Arjun confirmed that pt does own a FWW at home. Pt S/O transporting pt home today. Pt and pt S/O denies any other needs. No other discharge needs identified. All updated and agreeable to plan. Plan: Per pt is medically ready to discharge home via POV with [facility] PT to follow up on 12/10/2016. Pt and pt S/O denies any other needs. No other discharge needs identified. All updated and agreeable to plan. RICKY Waterman
--- NOTE | 2016-12-02 13:33 | NUR ---
Discharge 0930 - Discussed his care with Dr. Foley and the rest of the multidisciplinary care team during morning rounds. Notified him that he was still on IV pain medication, had high blood sugars during the night, and had been hypertensive during the night as well. Dr. Foley said he would look into it, to discontinue telemetry, and that he would be discharged home today. 1215 - Paged Dr. Foley because the discharge prescriptions needed to be signed and an order for Home Health and Physical Therapy needed to be ordered before he could be discharged. Britt from Social Work paged him again about 1230 after note hearing back from him. Dr. Foley came a little later and took care of the discharge details. 1330 - He discharged at this time with his belongings and Significant Other (SO) to drive him home. Gave and discussed his discharge instructions with him and his SO (prescriptions, care notes, instructions). Discontinued his IV and telemetry intact. He thanked this nurse for her care and expressed a number of times how excellent his care and the staff have been here.
--- NOTE | 2016-12-02 18:01 | NUR ---
Follow-up Call Just got off the phone with him. He had some questions about his Prednisone dosing which was answered. He said he also couldn't find the Oxycodone-Acetaminophen prescription. This nurse specifically remembers placing it in his discharge packet with the Prednisone prescription which was handed to him. He said he would look at his packet again more closely for it and would call back if he had any questions. Thanked this nurse for taking to time to answer his questions. Care continues.
--- NOTE | 2016-12-02 18:30 | PCM.DC.MED ---
Discharge Summary Date of Service Dec 02, 2016 Dates of Hospitalization Date of Hospital Admission Nov 28, 2016 at 03:07 Date of Discharge: Dec 02, 2016 Providers: Admitting Physician: Miladis Johnson DO Primary Care Physician: Audie Collins MD Attending Physician: Miladis Johnson DO Diagnosis at Time of Discharge Diagnosis at Time of Discharge Lumbosacral radiculopathy; degenerative joint disease; type II diabetes mellitus ; acute kidney injury; chronic kidney disease Procedures XRay, CTs & MRIs PROCEDURE: X-RAY CHEST ONE VIEW, PORTABLE ([id number]) COMPARISON: [facility], CR, CHEST 1 VIEW, 11/21/2016, 15:29. [facility], CR, XR CHEST 2VW, 07/28/2015, 10:15. FINDINGS: Lungs and pleura: No pleural effusions or pneumothorax. Diminishing pulmonary edema present with residual interstitial opacities within the lung bases. IMPRESSION: Resolving edema. Dictated by: Dale Antonio [facility] Interpreted: Colin Bhat MD on 11/28/2016 at 9: 12 PROCEDURE: MRI LUMBAR SPINE WITHOUT CONTRAST ([id number]) FINDINGS: Image quality: Excellent. Paraspinous Soft Tissues: No paravertebral masses. There is moderate ill- defined FLAIR signal elevation within the posterior paraspinous soft tissues at the L3-L5 level. L1-L2: Disc desiccation and diffuse disc bulge. Mild canal stenosis. No foraminal stenosis. L2-L3: Disc desiccation and diffuse disc bulge. Bilateral facet hypertrophy. Mild canal stenosis. Mild foraminal stenosis bilaterally. L3-L4: Disc desiccation and diffuse disc bulge. Bilateral facet hypertrophy. Mild canal stenosis. Mild bilateral foraminal stenosis. L4-L5: Disc desiccation and diffuse disc bulge. Bilateral facet hypertrophy. Epidural lipomatosis. Mild canal stenosis. Mild bilateral foraminal stenosis. L5-S1: Mild diffuse disc bulge. Bilateral facet hypertrophy. Mild canal stenosis. Mild foraminal stenosis bilaterally. IMPRESSION: 1. Elevated STIR signal intensity within the posterior paraspinous soft tissues of the mid/lower lumbar spine, possibly related to muscle strain and/or denervation sequelae. 2. Otherwise negative evaluation of the lumbar spine. Mild multilevel canal and foraminal stenoses secondary to disc and facet disease. No evidence of neural impingement. Dictated by: Alexandra Peguero M.D. on 11/28/2016 at 13:23 . ECG 12 Lead ECG reveals sinus rhythm with nonspecific ST segment changes likely consistent with repolarization. Cardiac Echo Impression Echocardiogram Report Name: ENZO NUNES Study Date: 11/29/2016 Interpretation Summary The left ventricle is normal in size, wall thickness, and systolic function without any focal wall motion abnormalities. The ejection fraction is estimated to be 60-65%. Assessment of diastolic parameters indicates a relaxation abnormality of the left ventricle, consistent with normal filling pressures. No significant changes since 01/02/2016. The right ventricle is normal in size and function. Pulmonary artery pressures cannot be estimated because of the lack of a measurable TR jet velocity. Both atria are normal in size. There is no significant valvular heart disease. The ascending aorta is mildly enlarged. . Brief History History of Present Illness (per admission note): This is a pleasant 61-year-old gentleman who returns to the hospital after having just been discharged on November 24. He was admitted from November 21 through November 24 for AKA in context of chronic kidney disease stage III as well as chronic that he is noticed to and anemia. The patient has meloxicam and lisinopril held and with fluid resuscitation normalized his creatinine. He is on chronic gabapentin for his neuropathy. He discharged home with resumption of lisinopril as well as his gabapentin but over last day and a half has had progressive weakness of both legs equally as well as increased aching of the legs bilaterally. He does have chronic neuropathic pain and has a hard time describing with his acute pain is different in nature. In any case any movement of his legs on either side increases the pain and holding them still tends to decrease the pain. He has some lower back pain and cannot say if this is old or new. He denies any distinct radiation of pain from the back to the lower extremities. He has been constipated for 3 days. He denies any urinary retention or incontinence. No recent diarrhea. No fevers or chills. No skin rash or lesions of the legs. He does feel like both legs were equally weak week including the feet and lower legs and thighs. He denies any leg numbness. . Hospital Course #. Bilateral leg pain and weakness. Presumed lumbar radiculopathy . POA, much improved.. The patient does have a history of neuropathy related to his diabetes but also has symptoms suggestive of possible lower back problem and perhaps even a lumbar disc with central protrusion and bilateral radiculopathy. MRI revealed lumbar stenosis and multiple disc herniations but no cord encroachment. The patient was started on prednisone for possible lumbar radiculopathy associated with this. He has done very well on his strength is improved remarkably in 3 days with steroids. He may require use of a walker which he already has. This taxing effort for him to ambulate and he will require home physical therapy 3 times per week for proximally 4 weeks, to begin on 12/10/16. - Prednisone 40 mg per day, taper by 10 mg approximately every 3 days. - Short-term prescription for Percocet 10 mg every 6 hours when necessary, dispense #14 no refills - Patient was advised to follow-up with his primary care provider for further management of lower back issues. #. Hyperglycemia associated with diabetes mellitus 2, POA and persistent. Elevated glucose due to prednisone which will taper over the next 2 weeks. - Patient was advised to increase nighttime glargine to 70 units, and to increase meal-related Humalog to 15 units - Decrease accordingly when prednisone is tapered off #. Acute kidney injury, with chronic kidney disease, present on admission. Admitting serum creatinine 2.82 improved 1.68 at time of discharge - Patient was advised to resume all his normal cardiac and renal medications #. Chronic anemia chronic disease, POA. Hemoglobin was stable and range from 8.7-9.1. #. CAD, POA. This appears to be stable. No changes to cardiac medications. #. Obstructive sleep apnea, POA. Rise to continue CPAP. . Exam Vital Signs (Last) Date Time Temp Pulse Resp B/P Pulse Ox O2 Delivery O2 Flow Rate FiO2 12/02/16 11:25 Room Air 12/02/16 11:14 72 12/02/16 08:34 36.4 16 145/82 96 Exam General: Obese gentleman, no acute distress HEENT: sclerae anicteric, oral mucosa moist Neck: no JVD Chest: clear to auscultation Cardiac: S1S2, no murmur Abdomen: BS normal, non-tender Extremities: No edema Neuro: A&O, cranial nerves symmetric, motor strength 5-/5 in lower extremities bilaterally, able to ambulate slowly, coordination normal Test 11/27/16 23:59 11/28/16 01:30 11/28/16 07:14 11/28/16 23:59 Prothrombin Time 10.2sec (8.1-12.5) Prothromb Time International Ratio 0.95ratio Activated Partial Thromboplast Time 32.3sec (22.8-33.0) Pro-B-Type Natriuretic Peptide 1008pg/mL (0-210) Alcohols < 10mg/dL (0-10) Urine Color Yellow (YELLOW) Urine Appearance Clear (CLEAR,HAZY) Urine pH 5.0 (5.0-8.0) Urine Specific [place] 1.012 (1.003-1.035) Urine Protein 30mg/dL (NEG,TRACE) Urine Glucose (UA) 100mg/dL (NEGATIVE) Urine Ketones Negativemg/dL (NEGATIVE) Urine Occult Blood Negative (NEGATIVE) Urine Nitrite Negative (NEGATIVE) Urine Bilirubin Negative (NEGATIVE) Urine Urobilinogen Normalmg/dL (NORMAL) Urine Leukocyte Esterase Negative (NEGATIVE) Urine RBC 0-2/hpf (0-2) Urine WBC 0-5/hpf (0-5) Urine Epithelial Cells Occasional/hpf (NONE-MOD) Urine Crystals None seen (NONE SEEN) Urine Bacteria None/hpf (NONE-FEW) Urine Hyaline Casts None/lpf (NONE) Urine Granular Casts None seen (NONE SEEN) Urine Waxy Casts None seen (NONE SEEN) Urine Red Blood Cell Casts None seen (NONE SEEN) Urine White Blood Cell Casts None seen (NONE SEEN) Urine Mucus None seen (None Seen) Urine Trichomonas None seen (NONE SEEN) Urine Yeast None (NONE SEEN) Urine Culture Reflexed Not indicated Neutrophils (%) (Auto) 78.1% (40-74) Lymphocytes (%) (Auto) 10.4% (14-46) Monocytes (%) (Auto) 9.7% (4-12) Eosinophils (%) (Auto) 1.4% (0-5) Basophils (%) (Auto) 0.1% (0-3) Lactic Acid Level 0.6mmol/L (0.4-2.0) Magnesium Level 2.0mg/dL (1.6-2.6) Hold Rain Top Tube Received (Received) Test 11/29/16 08:05 12/02/16 02:25 Hemoglobin A1c 8.8% (4.8-5.6) Total Bilirubin 0.3mg/dL (0.0-1.2) Aspartate Amino Transf (AST/SGOT) 12U/L (0-50) Alanine Aminotransferase (ALT/SGPT) 19U/L (0-44) Alkaline Phosphatase 303U/L (25-160) Troponin T 0.013ug/L (0.0-0.011) Total Protein 7.3g/dL (6.4-8.4) Albumin 3.3g/dL (3.4-5.0) White Blood Count 11.9th/mm3 (3.8-10.1) Red Blood Count 3.36mil/mm3 (4.40-5.80) Hemoglobin 8.7g/dL (13.8-17.2) Hematocrit 27.9% (41.0-50.0) Mean Corpuscular Volume 83.0fL (81-100) Mean Corpuscular Hemoglobin 25.9pg (27.0-35.0) Mean Corpuscular Hemoglobin Concent 31.2% (32.0-37.0) Red Cell Distribution Width 14.9% (12.3-15.4) Platelet Count 319bil/L (150-400) Sodium Level 136mEq/L (134-144) Potassium Level 4.9mEq/L (3.5-5.2) Chloride Level 100mEq/L (97-108) Carbon Dioxide Level 22mmol/L (18-29) Blood Urea Nitrogen 79mg/dL (8-27) Creatinine 1.68mg/dL (0.76-1.27) Estimat Glomerular Filtration Rate 44mL/min (>59) Glucose Level 346mg/dL (60-99) Calcium Level 8.9mg/dL (8.5-10.1) Discharge Medications Discharge Medications Aspirin Chew (Aspirin Chew) 81 Mg Tablet 81 MG PO DAILY Prescribed by: SHAJI PADILLA DO, RESIDENT Atorvastatin Calcium (Atorvastatin Calcium) 40 Mg Tablet 40 MG PO DAILY ( Reported) Calcitriol (Rocaltrol) 0.25 Mcg Capsule 0.25 MCG PO DAILY (Reported) Clopidogrel (Clopidogrel) 75 Mg Tablet 75 MG PO DAILY Prescribed by: SHAJI PADILLA DO, RESIDENT Furosemide (Furosemide) 80 Mg Tab 80 MG PO BID Prescribed by: KAVITA PRADO DO Gabapentin (Gabapentin) 300 Mg Capsule 300 MG PO BID (Reported) Hydralazine (Hydralazine) 100 Mg Tablet 100 MG PO TID (Reported) Insulin Aspart (NovoLOG U-100 Pen) 100 Unit/Ml Insuln.pen 10 UNITS SC TIDAC ( Reported) Insulin Glargine (Lantus U100 Insulin Vial) 100 Unit/Ml Vial 50 UNIT SUBQ HS ( Reported) Isosorbide DN (Isosorbide DN) 20 Mg Tablet 40 MG PO TID Prescribed by: SHAJI PADILLA DO, RESIDENT Lisinopril (Lisinopril) 2.5 Mg Tablet 2.5 MG PO DAILY (Reported) Metoprolol Succinate ER (Metoprolol Succinate ER) 25 Mg Tab.er.24h 25 MG PO DAILY (Reported) Omeprazole (Omeprazole) 20 Mg Capsule.dr 20 MG PO DAILY (Reported) Prednisone (PredniSONE) 10 Mg Tablet 40 MG PO DAILY 4 tablets per day 3 days, then 3 tablets per day 3 days, then 2 tablets per day 3 days, then 1 tablet per day 3 days, then stop. Prescribed by: SUSSY AGARWAL MD As needed Nitroglycerin SL (Nitrostat) 0.4 Mg Tab.subl 0.4 MG SL Q5MIN PRN PRN For Chest Pain (Reported) oxyCODONE-Acetaminophen 10-325 mg (oxyCODONE-Acetaminophen 10-325 mg) 1 Each Tablet 1 TABLET PO Q6H PRN PRN For Pain Prescribed by: SUSSY AGARWAL MD Additional med instructions The prescription for prednisone is given which includes a gradual taper over the next 2 weeks. A prescription for Percocet is given to assist with short- term pain control. You should take laxatives fiber or other strategies to keep your bowels moving when taking Percocet. While taking prednisone your blood sugars will be elevated. You should continue Lantus 70 units at bedtime until your morning sugars are below 130, then you may return to usual 50 units. You should increase Humalog to 15 units per meal. You may take an additional 5 units if blood sugar prior to the meal is above 180. I encourage you to check your blood sugar 2 hours after the meal. It should be below 180 at that time. If not increase the amount of Humalog you take with each meal. In the return Humalog dosing to your normal level when you are off prednisone. Followup Plan Disposition: Home with home health physical therapy Follow-up plan See your primary care doctor for further evaluation of your spinal disease, as well as chronic kidney disease, and diabetes management. Record your blood sugars and bring these to your follow-up PCP appointment. Discharge Diet: Diabetic Discharge Activity: Home Health Phyical Therapy (health physical therapy 3 times per week for the next 4 weeks is recommended) Patient Instructions Continue with normal physical activity, as advised by your physical therapist. Maintain good hydration, preferably with water. Follow-up Provider: Audie Collins MD Follow-up with PCP in: 1 week Time spent 35 minutes copies to: Audie Collins MD, Jeffrey W MD Dec 02, 2016 18:30
--- NOTE | 2016-12-03 13:21 | NUR ---
Diabetic follow up call Patient reports, "no problems with glucometer." Blood glucose 115 today. Will record for MD appt.
== END 2016-12-02 13:30 | disposition home health service (06) | DRG 347 ==
LOC: SED 22:57 → PCC 11-28 03:07
PROVIDERS: ADMIT Internal Medicine; ATTEND Hospitalist
DX: M54.17 Radiculopathy, lumbosacral region (principal); E11.42 Type 2 diabetes mellitus with diabetic polyneuropathy; N17.9 Acute kidney failure, unspecified; E11.65 Type 2 diabetes mellitus with hyperglycemia; N18.3 Chronic kidney disease, stage 3 (moderate); D63.1 Anemia in chronic kidney disease; I25.10 Atherosclerotic heart disease of native coronary artery without angina pectoris; G47.33 Obstructive sleep apnea (adult) (pediatric); I12.9 Hypertensive chronic kidney disease with stage 1 through stage 4 chronic kidney disease, or unspecified chronic kidney disease; I25.2 Old myocardial infarction; E78.5 Hyperlipidemia, unspecified; Z79.4 Long term (current) use of insulin

== ENCOUNTER 2016-12-18 16:17 | Inpatient (IN) | payer OTHER ==
[~2016-12-18] VITALS: Ht 180.3 cm; Wt 125.5 kg
[~2016-12-18 16:17] MED LIST changes: -HYDR-4003 PO; +OXYC-466 PO; +PRE10 PO
[2016-12-18 16:19] VITALS: BP 101/60; PULSE 79; RESP 17; O2SAT 95
[2016-12-18 16:23] VITALS: BP 101/60; PULSE 79; RESP 17; O2SAT 95
[2016-12-18 17:01] VITALS: BP 122/50; PULSE 89; RESP 20; O2SAT 98
[2016-12-18 17:24] LABS: BASOPHILS % (AUTO) 0.1 % (0-3); EOSINOPHILS % (AUTO) 1.2 % (0-5); MONOCYTES % (AUTO) 8.2 % (4-12); Mean Corpuscular Hemoglobin 26.6 pg (27.0-35.0); Mean Corpuscular Volume 85.4 fL (81-100); NEUTROPHILS % (AUTO) 76.7 % (40-74); Platelet Count 204 bil/L (150-400)
--- NOTE | 2016-12-18 18:17 | ED.REPORT ---
HPI-General Illness Date of Service Dec 18, 2016 ED Provider: Prasanth Jarquin MD 61 y/o male with a hx of DM-II, chronic renal insufficiency, HTN, CHF,TX and chronic iron deficiency presents to the ED complaining of generalized weakness, onset a few days ago.The pt was discharged from the ED last week for renal failure. He had gone to [facility] for follow up labs today and he was sent back to the ED due to elevated BUN and creatinine. The pt states he was feeling very well 3 days ago with home therapy but he suddenly began experiencing weakness, dizziness, and found it difficult to walk. The pt denies vomiting, decreased fluid intake and difficulty producing urine, though he has not urinated since this morning. He admits he has been itchy but that is chronic. He also complains of low back pain and reports recent diagnosis of 5 herniated discs. The pt takes hydrocodone and medications for muscle spasms but no anti-inflammatory medications. Nursing Notes Stated Complaint: KIDNEY FAILURE, LEG AND BACK PAIN Chief Complaint: General Complaint Nursing Notes Reviewed: Yes Allergies: Coded Allergies: No Known Allergies (Unverified , 11/27/16) Scheduled Aspirin Chew (Aspirin Chew) 81 Mg Tablet 81 MG PO DAILY Atorvastatin Calcium (Atorvastatin Calcium) 40 Mg Tablet 40 MG PO DAILY Calcitriol (Rocaltrol) 0.25 Mcg Capsule 0.25 MCG PO DAILY Clopidogrel (Clopidogrel) 75 Mg Tablet 75 MG PO DAILY Furosemide (Furosemide) 80 Mg Tab 80 MG PO BID Gabapentin (Gabapentin) 300 Mg Capsule 300 MG PO BID Hydralazine (Hydralazine) 100 Mg Tablet 100 MG PO TID Insulin Aspart (NovoLOG U-100 Pen) 100 Unit/Ml Insuln.pen 10 UNITS SC TIDAC Insulin Glargine (Lantus U100 Insulin Vial) 100 Unit/Ml Vial 50 UNIT SUBQ HS Isosorbide DN (Isosorbide DN) 20 Mg Tablet 40 MG PO TID Lisinopril (Lisinopril) 2.5 Mg Tablet 2.5 MG PO DAILY Metoprolol Succinate ER (Metoprolol Succinate ER) 25 Mg Tab.er.24h 25 MG PO DAILY Omeprazole (Omeprazole) 20 Mg Capsule.dr 20 MG PO DAILY Prednisone (PredniSONE) 10 Mg Tablet 40 MG PO DAILY 4 tablets per day 3 days, then 3 tablets per day 3 days, then 2 tablets per day 3 days, then 1 tablet per day 3 days, then stop. Scheduled PRN Nitroglycerin SL (Nitrostat) 0.4 Mg Tab.subl 0.4 MG SL Q5MIN PRN PRN For Chest Pain oxyCODONE-Acetaminophen 10-325 mg (oxyCODONE-Acetaminophen 10-325 mg) 1 Each Tablet 1 TABLET PO Q6H PRN PRN For Pain General Time Seen by MD: 18:13 Chief Complaint Weakness Hx Obtained From: Patient Arrived By: Walk-in Sudden in Onset?: Yes Onset Occurred: 3 days ago Symptom Duration: Since onset Severity: Current: No pain currently Severity: Maximum: No pain Recent Healthcare: Recent doctor visit Similar Sx Previous: No Past Medical History Past Medical History CHF TX DM HTN Stage 3 chronic kidney disease GERD Diabetic neuropathy Sleep apnea Depression Anxiety Past Surgical History Eye Toe Foot Smoking History Never Smoker Social History Other Social History: Good social support, Ambulatory Status Independent Review of Systems Denies: decreased fluid intake Full Review of Systems Constitutional: Reports: Weakness - generalized GI: Denies: Vomiting Male: Denies Urination decreased Musculoskeletal: Reports: Back pain (lower) Neurologic: Reports: Dizziness Complete sys rev & neg: except as marked. Physical Exam Vital Signs Vital Signs Date Time Temp Pulse Resp B/P Pulse Ox O2 Delivery O2 Flow Rate FiO2 12/18/16 18:49 77 20 127/61 94 Room Air 12/18/16 17:01 89 20 122/50 98 Room Air 12/18/16 16:23 37.4 79 17 101/60 95 Room Air 12/18/16 16:19 37.4 79 17 101/60 95 Room Air Initial VS: Reviewed Head / Eyes: Atraumatic, Normocephalic ENT: Mucous membranes moist, Conjunctiva normal, No scleral icterus Neck: Supple, Non-tender, Full range of motion Respiratory: Breath sounds normal, Clear to auscultation, No respiratory distress Cardiovascular: Regular rate & rhythm, Heart sounds normal, Intact distal pulses Abdomen / GI: Soft, Non-tender Extremities: Vascular intact, Neuro intact, No swelling, No tenderness Skin: Warm, Dry, No cyanosis Neurologic: Alert, Oriented, Nonfocal General/Constitutional: Awake, Alert, Cooperative Interpretation & Diagnostics Lab Results Interpretation Result Diagram: 12/18/16 1715 12/18/16 1715 Test 6/29/17 17:15 White Blood Count 11.7th/mm3 (3.8-10.1) Red Blood Count 3.49mil/mm3 (4.40-5.80) Hemoglobin 9.3g/dL (13.8-17.2) Hematocrit 29.8% (41.0-50.0) Mean Corpuscular Volume 85.4fL (81-100) Mean Corpuscular Hemoglobin 26.6pg (27.0-35.0) Mean Corpuscular Hemoglobin Concent 31.2% (32.0-37.0) Red Cell Distribution Width 16.8% (12.3-15.4) Platelet Count 204bil/L (150-400) Neutrophils (%) (Auto) 76.7% (40-74) Lymphocytes (%) (Auto) 13.4% (14-46) Monocytes (%) (Auto) 8.2% (4-12) Eosinophils (%) (Auto) 1.2% (0-5) Basophils (%) (Auto) 0.1% (0-3) Sodium Level 135mEq/L (134-144) Potassium Level 4.8mEq/L (3.5-5.2) Chloride Level 93mEq/L (97-108) Carbon Dioxide Level 23mmol/L (18-29) Blood Urea Nitrogen 117mg/dL (8-27) Creatinine 3.79mg/dL (0.76-1.27) Estimat Glomerular Filtration Rate 17mL/min (>59) Glucose Level 197mg/dL (60-99) Calcium Level 9.6mg/dL (8.5-10.1) Total Bilirubin 0.5mg/dL (0.0-1.2) Aspartate Amino Transf (AST/SGOT) 7U/L (0-50) Alanine Aminotransferase (ALT/SGPT) 10U/L (0-44) Alkaline Phosphatase 120U/L (25-160) Total Protein 7.3g/dL (6.4-8.4) Albumin 3.4g/dL (3.4-5.0) Hold Rain Top Tube Received (Received) Re-Eval/Medical Decision Med Decision/Clinical Course 61-year-old male returns with marked azotemia in the setting of previous kidney disease. Clinically appears euvolemic and states he is not thirsty. We gave a liter of saline, will admit to the hospitalist service for further evaluation and treatment. Time of Eval: 18:20 Re-Evaluation/Progress Note: Rechecked pt. Discussed lab results, diagnosis and plan to admit. Pt understands and agrees with the plan for admission. All questions addressed. Consultation : Referral / Consult Name: Rohit Ramey MD Consulted With: Hospitalist Call Returned at: 19:00 Marquetry Worker: Will see patient, Agrees with eval, Agrees with plan, Accepts admit Counseled Regarding: Diagnosis, Lab results, Need for admission Discharge & Departure Primary Impression: Acute on chronic renal failure Disposition: ADMITTED TO HOSPITAL Discharge Condition All VS Reviewed: Yes Referrals: Audie Collins MD (PCP) Scribe Attestation Portions of this note were transcribed by Bibi Alvarenga. I, , personally performed the history, physical exam and medical decision- making;I reviewed and confirmed the accuracy of the information in the transcribed note. Signed by Mery Patricia. 12/18/16 20:05 copies to: Audie Collins MD, Donald L MD Dec 18, 2016 18:17 Bibi Alvarenga Dec 18, 2016 18:41
[2016-12-18] MEDS ORDERED: 0.9% Sodium Chloride 1,000 ML IV ONE (18:45)
[2016-12-18 18:49] VITALS: BP 127/61; PULSE 77; RESP 20; O2SAT 94
[2016-12-18 20:23] VITALS: BP 121/57; PULSE 75; RESP 20; O2SAT 95
[2016-12-18] MEDS ORDERED: Alum-Mag Hydrox-Simeth 30 mL Suspension PO PRN (20:45)
[2016-12-18] MEDS ORDERED: Ondansetron 2 mg/mL 2 mL Inj IVPUSH PRN (20:45)
--- NOTE | 2016-12-18 20:53 | NUR ---
ADMIT Report received from Tiarra Yanez. Pt arrived at 2050, pt unsteady, taking a lot of time transferring to bed, 2 PA, partner at bedside. Pt in BR, getting UA. CPAP from home, partner helping to set up. Will notify RT. Continuing care.
[2016-12-18 21:15] VITALS: BP 115/68; PULSE 81; RESP 16; O2SAT 93
[2016-12-18 21:42] LABS: APPEARANCE,URINE HAZY (CLEAR,HAZY); COLOR,URINE STRAW (YELLOW); OCCULT BLOOD,URINE NEGATIVE (NEGATIVE); UROBILINOGEN,URINE NORMAL (NORMAL)
--- NOTE | 2016-12-18 22:34 | NUR ---
DIET Pt said he had not eaten in awhile, requesting sandwich. Paged Dr. Ramey, "Admit complete, med rec complete. Pt requesting sandwich (DM2, BG 194) and meds, need diet order." Awaiting response. Addendum: 12/18/16 at 2327 by YESSI PASCAL RN Ordered diabetic/consistent carb. Gave sandwich, pt aware of diet.
[2016-12-19] VITALS (7 sets, daily range): BP systolic 107–123; BP diastolic 67–76; PULSE 72–82; RESP 16–20; O2SAT 94–95
--- NOTE | 2016-12-19 01:02 | PCM.HPMED ---
Subjective Date of Service Dec 19, 2016 Primary Provider: Admitting Physician: Rohit Ramey MD Primary Care Physician: Audie Collins MD Attending Physician: Rohit Ramey MD Admit Status: From the Emergency Department Chief Complaint: Generalized weakness onset 3 days ago, chronic back and leg pain History of Present Illness: This is a pleasant 61 y/o M with a hx of obesity, history of of DM-II with diabetic nephropathy and diabetic neuropathy, chronic renal insufficiency with chronic kidney disease stage III, HTN, CHF, history of coronary artery disease with MO, and chronic anemia of undetermined etiology being followed by by Dr. Juárez, who resented to the ED with complaint of generalized weakness onset 3 days ago.she states that the symptoms are similar to what he was experiencing when he was admitted to the hospital in early November. Associated symptoms included dizziness as a spinning which reportedly was similar to what he experienced during his last hospitalization, and difficulty with ambulation. The pt was discharged from the ED last week with renal failure. He had gone to Dr. Bolanos at Dr. Juárez's office today and was found to have elevated BUN and creatinine. The patient was instructed to go to the ED. Patient reports that he was doing just fine up until about 3 days ago when he began to began experiencing weakness, dizziness, and difficulty walking. He also complains of chronic low back pain and reports recent diagnosis of 5 herniated discs. Patient was requesting that he replaced back on his prednisone and states that he was given a prescription today by his PCP Dr. Collins but had not yet had a chance to fill it. The pt takes hydrocodone and medications for muscle spasms but denies any anti-inflammatory medications. Patient denies difficulty urinating or producing urine, headaches, lightheadedness, fever, chills, sweats , nausea, vomiting, shortness of breath, chest pain, dyspnea, hematuria, constipation, abdominal pain, flank pain, recent weight gain. In the ED: Patient had no new imaging. Signs showed: Temperature 37.4, pulse 79, respiratory rate 17, blood pressure 101/60 with a map of 74, 95% on room air. Patient has voided 675 mL since admission. Current weight is 128.6. Patient was given medication Roxicodone 10 mg by mouth once and 5 mg by mouth once in the ED. He was given 1 L normal saline bolus. His hemogram showed: WBC 11.7 with 76.7% PMNs and left shift, 13.4% lymphocytes , H/H was 9.3/29.8, platelet count 204 Chemistry panel showed: Sodium 135, potassium 4.8, chloride 93, CO2 23, BUN 117 , creatinine 3.79, of no patient had a creatinine of 1.68 on 12/02/2016. Glucose 197 otherwise normal chemistry panel UA was negative for infection. Review of Systems: A comprehensive review of systems was conducted and was negative except as mentioned in history of present illness. Allergies Coded Allergies: No Known Allergies (Unverified , 11/27/16) Home Medications Aspirin Chew (Aspirin Chew) 81 Mg Tablet 81 MG PO DAILY Atorvastatin Calcium (Atorvastatin Calcium) 40 Mg Tablet 40 MG PO DAILY Calcitriol (Rocaltrol) 0.25 Mcg Capsule 0.25 MCG PO DAILY Clopidogrel (Clopidogrel) 75 Mg Tablet 75 MG PO DAILY Furosemide (Furosemide) 80 Mg Tab 80 MG PO BID Gabapentin (Gabapentin) 300 Mg Capsule 300 MG PO BID Hydralazine (Hydralazine) 100 Mg Tablet 100 MG PO TID Insulin Aspart (NovoLOG U-100 Pen) 100 Unit/Ml Insuln.pen 10 UNITS SC TIDAC Insulin Glargine (Lantus U100 Insulin Vial) 100 Unit/Ml Vial 50 UNIT SUBQ HS Isosorbide DN (Isosorbide DN) 20 Mg Tablet 40 MG PO TID Lisinopril (Lisinopril) 2.5 Mg Tablet 2.5 MG PO DAILY Metoprolol Succinate ER (Metoprolol Succinate ER) 25 Mg Tab.er.24h 25 MG PO DAILY Omeprazole (Omeprazole) 20 Mg Capsule.dr 20 MG PO DAILY Prednisone (PredniSONE) 10 Mg Tablet 40 MG PO DAILY 4 tablets per day 3 days, then 3 tablets per day 3 days, then 2 tablets per day 3 days, then 1 tablet per day 3 days, then stop. PRN Nitroglycerin SL (Nitrostat) 0.4 Mg Tab.subl 0.4 MG SL Q5MIN PRN PRN For Chest Pain oxyCODONE-Acetaminophen 10-325 mg (oxyCODONE-Acetaminophen 10-325 mg) 1 Each Tablet 1 TABLET PO Q6H PRN PRN For Pain PMH CHF MO DM HTN Stage 3 chronic kidney disease GERD Diabetic neuropathy Sleep apnea Depression Anxiety Surgical History Eye surgery, Toe surgery, Foot surgery Social History Hx Alcohol Use: No Hx Substance Use: No Hx Tobacco Use: No Smoking Status: Never Smoker Exam Vital Signs Vital Sign - Last Date Time Temp Pulse Resp B/P Pulse Ox O2 Delivery O2 Flow Rate FiO2 12/19/16 00:19 36.6 79 18 109/70 94 Room Air Intake and Output 12/18/16 12/18/16 12/19/16 Cumulative From/Thru 15:00 23:00 07:00 12/18/16 16:19 - 12/18/16 21:15 Intake Total 999 ml 999 ml Output Total 675 ml 675 ml Balance 324 ml 324 ml Intake IV Total 999 ml 999 ml Output Urine Total 675 ml 675 ml Exam General: Patient is alert and oriented 3, in no acute distress, resting comfortably in bed, conversational and speaking in full sentences. She was found sleeping in his bed when I entered the room wearing a CPAP mask. HEENT: NC/AT, eyes, PERRLA, EOMI, neck, soft supple, no adenopathy, no JVD, no masses, no thyromegaly, throat mucous membranes pink and moist, no erythema, no exudates, no tonsillar swelling, no uvular deviation. Poor dentition Lungs: CTAB all leroy, no wheezes, no rhonchi, no crackles, no adventitious lung sounds, no use of accessory muscles of respiration, good air movement, good respiratory effort. Heart: Regular rate and rhythm, no murmur, S1-S2 present, no rub, no click, no distant heart sounds, Abdomen: Is protuberant and obese with some firmness to palpation in the right flank area, with mild tenderness to palpation, bowel sounds active, no rebound, no guarding, Genitourinary: No CVA tenderness, no suprapubic tenderness, no Jewell catheter, Extremities: Pulses equal and symmetric upper/lower extremity including radial and dorsalis pedis, edema of the left lower extremity that is pitting. Neurologic: Grossly neurologically intact, speaking in full sentences, no focal neurological signs. Skin: Warm, dry, intact without rash there is some bruising and ecchymoses on the abdomen. Psychiatric: Mood is cheerful and mood and affect are congruent and appropriate. Lab and Diagnostics Result Diagram: 12/18/16171412/18/161714 Assessment & Plan This is a pleasant 61-year-old male with history of type II diabetes and chronic renal insufficiency, hypertension CHF and history of MO who presented with 3 day history of generalized weakness and lightheadedness. Of note patient was recently discharged from the ED for renal failure last week. # Acute on chronic kidney disease stage III with diabetic nephropathy, with acute azotemia, present on admission, active - Of note patient was seen by Dr. Goff for consult on his hospitalization on 11/22/2016 - Patient has history of NSAID-induced acute kidney injury on prior hospitalization earlier this month, history of diabetic nephropathy, as well as possible ischemic ATN component per nephrology note. - BUN 117, creatinine 3.79, of no patient had a creatinine of 1.68 on 12/02/2016 - Sodium 135, potassium 4.8, chloride 93, CO2 23, - Patient was given a bolus of normal saline in the ED - Patient is voiding - UA was negative - We will continue to hydrate patient with normal saline at a rate of 75 mL per hour, being careful not to overload the patient given his history of chronic kidney disease and CHF. - We will follow patient with daily weights strict out of bed weights. - We will get nephrology consult in the morning regarding this patient. - We will place him on continuous cardiac monitoring remote telemetry - We will avoid nephrotoxic agents, such as NSAIDs, hold home medication lisinopril - We will medication Lasix for now # Leukocytosis, present on admission, active - WBCs 11.7 with left shift -Temperature 37.4, pulse 79, respiratory rate 17, blood pressure 101/60 with a map of 74, 95% on room air. - He does not meet sepsis criteria - UA was negative - We will order pro calcitonin # Anemia normocytic hypochromic, Present on admission, active - H/H9.3/29.8 with MCV of 85.4, MCHC of 31.2 and RDW of 16.8 - Likely due to anemia of chronic inflammation - Patient is currently being worked up at Dr. Juárez's office for cause of his anemia # Hyperglycemia, in a known type II diabetic, present on admission, active - Glucose 197 - We will obtain hemoglobin A1c - We will continue home medication Lantus 50 units subcutaneous at bedtime - We will hold NovoLog pen and start low-dose correctional scale insulin - Diabetic diet Chronic problems # Chronic Back pain - Patient was given medication Roxicodone 10 mg by mouth once and 5 mg by mouth once in the ED - Patient reports that he was given prescription for prednisone by his PCP today for his herniated disks. - We will verify with patient's pharmacy in the morning and then plan to start prednisone accordingly - Patient takes oxycodone 10/325 grams every 6 hours when necessary for pain # CHF, presumed stable - No echocardiogram on record in [facility] # Hx of coronary artery disease with MO - We will continue medication Plavix 75 mg daily - aspirin 81 mg daily #Diabetes mellitus with neuropathy and nephropathy # HTN with hypertensive nephrosclerosis. - Hold home medication lisinopril - We will hold home medication Lasix for now - We will continue medication metoprolol succinate ER 25 mg by mouth daily - Continue medication isosorbide dinitrate 40 mg 3 times a day - Continue home medication hydralazine 100 mg by mouth 3 times a day #GERD - Continue medication omeprazole daily #Sleep apnea - wears CPAP mask #Depression with Anxiety #Hyperlipidemia - We will continue medication atorvastatin 40 mg daily Disposition: Admitted to in patient service with expected length of stay greater than 2 days, secondary to severity of presenting symptoms, treatment plan, complexity of clinical work up, and risk of adverse events. CODE STATUS: Full code PCP: Dennis Bronson M.D. DVT PE prophylaxis: SubQ heparin Q8H Contact: Resuscitation Status: CPR: Attempt Resuscitation RomieheidiMichel BOJORQUEZ Dec 19, 2016 01:02
[2016-12-19] MEDS ORDERED: Ondansetron 2 mg/mL 2 mL Inj IVPUSH PRN (01:50)
[2016-12-19] MEDS ORDERED: Alum-Mag Hydrox-Simeth 30 mL Suspension PO PRN (01:50)
[2016-12-19] MEDS ORDERED: Polyethylene Glycol (PEG) 17 Gm Powder PO PRN (01:50)
[2016-12-19] MEDS ORDERED: Glucose 40% Oral Gel 15 Gm Tube PO PRN (02:35)
[2016-12-19] MEDS ORDERED: Dextrose 10% 250 ML IV PRN (02:35)
[2016-12-19] MEDS: 0.9% Sodium Chloride 1,000 ML IV SCH ×2 (02:41→22:09)
[2016-12-19] MEDS: HYDROmorphone 1 mg/mL Inj IVPUSH PRN ×4 (03:21→22:16)
[2016-12-19] MEDS: Insulin LISPRO 300 Unit/3 mL Inj SUBQ SCH ×4 (07:43→21:35)
[2016-12-19] MEDS: Heparin 5,000 Unit/mL Inj SUBQ SCH ×3 (07:46→23:47)
[2016-12-19 08:15] LABS: BASOPHILS % (AUTO) 0.1 % (0-3); MONOCYTES % (AUTO) 8.8 % (4-12); Mean Corpuscular Hemoglobin 26.5 pg (27.0-35.0); NEUTROPHILS % (AUTO) 71.9 % (40-74); Platelet Count 176 bil/L (150-400)
--- NOTE | 2016-12-19 14:40 | CONS ---
[address] [address] CONSULTATION REPORT PATIENT: ENZO NUNES : 1955 MR#: [id number] ADMIT: 12/18/2016 JOB ID: [id number] DATE OF SERVICE: 12/19/2016 NEPHROLOGY CONSULTATION: REQUESTING PHYSICIAN: Michel Mendoza DO REASON FOR CONSULTATION: Management of abnormal kidney function. CHIEF COMPLAINT: Abnormal kidney function and malaise. HISTORY OF PRESENT ILLNESS: This is a very pleasant 61-year-old male with significant past medical history of type 2 diabetes, biopsy-proven diabetic nephropathy, neuropathy, hypertension, sleep apnea, and coronary artery disease, who was instructed to go to the emergency department due to worsening malaise. The patient has been hospitalized twice over the past month. The 1st hospitalization was between November 21 and November 24 due to acute kidney injury secondary to over-diuresis. The 2nd hospitalization was between November 28 and December 02 due to back pain and lumbosacral radiculopathy. The patient was discharged home with oral prednisone. He reported that he has had generalized weakness over the past three days also. He has not taken any NSAIDs. He takes oxycodone probably twice a day. The patient reports no history of fever or chills. No chest pain or shortness of breath. Yesterday at his doctor's office he was found to have elevation of the BUN and creatinine, therefore he was informed to go to the emergency department for further investigation. I evaluated the patient at the last hospitalization, at the time when he had acute kidney injury that was related to over-diuresis and NSAIDs (meloxicam). The patient stated that since the episode of acute kidney injury that time he has not taken any NSAIDs. He denied history of dysuria or hematuria, difficulty urinating. Of note, he remains taking furosemide 80 mg twice a day. He does not have significant lower extremity swelling but is showing some swelling on the left leg only. The patient had a lower extremity venous duplex performed over a year ago in July 2015 which showed no evidence of DVT. His blood pressure has been steadily throughout the night, however it is on the low side. Compared to the previous admission, he was more hypertensive. He has not received IV contrast. He complains of difficulty walking and that related to herniated disk, however it has improved since the prednisone was started. His baseline serum creatinine has ranged between 1.6 to 1.8. The initial BUN and creatinine this time was 117 and 3.79, respectively. He received normal saline 75 mL/hour overnight. His current BUN and creatinine are 110 and 3.07, respectively. Of note, he has been hyperglycemic; this morning blood sugar was 233. PAST MEDICAL HISTORY: 1. Type 2 diabetes complicated by diabetic nephropathy and neuropathy. 2. Coronary artery disease. 3. History of non-ST elevation [place]. 4. Chronic kidney disease stage 3, status post biopsy proven diabetic nephropathy. 5. Dyslipidemia. 6. Severe obstructive sleep apnea. 7. Herniated disc and radiculopathy. PAST SURGICAL HISTORY: Status post tonsillectomy. SOCIAL HISTORY: Denies current use of alcohol, tobacco, or illicit drugs. FAMILY HISTORY: Noncontributory. ALLERGIES: No known drug allergies. MEDICATIONS: 1. Lasix 80 mg twice a day. 2. Aspirin 81 mg once a day. 3. Lipitor 40 mg once a day. 4. Calcitriol 0.25 mcg once a day. 5. Plavix 75 mg once a day. 6. Gabapentin 300 twice a day. 7. Hydralazine 100 mg t.i.d. 8. Lantus. 9. NovoLog. 10. Lisinopril 2.5 mg once a day. 11. Metoprolol ER 25 mg once a day. 12. Nitroglycerin 0.4 mg as needed. 13. Omeprazole 20 mg once a day. 14. Oxycodone. 15. Prednisone. REVIEW OF SYSTEMS: Fourteen-point review of systems was performed. PHYSICAL EXAMINATION: Vitals: Temperature 36.9, pulse 82, respiratory rate 20, blood pressure 123/75, O2 sat 94% on room air. General appearance: Awake, alert, oriented x3. No acute distress. HEENT: PERRLA, atraumatic, moist mucous membranes. No pallor, no jaundice. No JVD. No lymphadenopathy. No thyroid enlargement. Heart: Regular rhythm. Normal S1, S2. No murmurs, rubs, or gallops. Lungs: Clear to auscultation bilaterally. No wheezing. No rhonchi. No accessory muscle use. Good air entry. Abdomen: Soft, obese. Active bowel sounds. Nontender, nondistended. No hepatosplenomegaly. Extremity: No edema on the right lower extremity. Positive for some trace edema on the left lower extremity. LABORATORY: WBC 8.4, hemoglobin 9.5, platelets 176. Sodium 135, potassium 4.6, chloride 95, bicarb 23, BUN 110, creatinine 3.07, glucose 233. UA: Specific gravity 1.010, protein 30, 0-2 RBCs, 0-5 WBCs, and few bacteria. Urine sodium 82. Urine protein 36. Urine creatinine 62. ASSESSMENT: 1. Acute kidney injury on chronic kidney disease, likely related to prerenal azotemia. His current blood pressure is relatively low compared to what he used to have. The etiology of prerenal azotemia could be over-diuresis and polyuria from uncontrolled diabetes. At this point we would like to continue normal saline at the rate of 75 mL/hour. We will monitor his volume status on a daily basis. For now, we will hold lisinopril and furosemide. 2. Type 2 diabetes with diabetic nephropathy. 3. Hypertension with hypertensive nephrosclerosis. 4. Chronic back pain with underlying disease of herniated disc. 5. Chronic lower extremity swelling, left more than right. 6. Chronic anemia. PLAN: 1. Continue IV fluids, normal saline at 75 mL/hour. 2. Hold lisinopril and Lasix. 3. Check a urine protein/creatinine ratio and urine sodium. 4. Will order a kidney sonogram. 5. No urgent dialysis indicated at this moment. 6. Continue to control pain. 7. Repeat kidney blood work in the morning. Thank you for allowing me to participate in the care of your patient. We will monitor along with you.
--- NOTE | 2016-12-19 17:43 | NUR ---
spiritual care; routine brief conversational visit. pt tearful as he shared medical overwhelm and offer for in-hospital eucharistic visit. brief follow up visit later in day. pt coping, calm, waiting for more information and updates
--- NOTE | 2016-12-19 18:27 | DRSVH ---
PROCEDURE: US RENAL SONOGRAM INDICATIONS: GENEVA TECHNIQUE: Real-time scanning was performed of the kidneys and bladder, with image documentation. COMPARISON: None. FINDINGS: Kidneys: Kidneys are normal in size. Right kidney measures 10.7 cm long; left kidney measures 11.5 cm long. Right renal cortical thickness is 1.0 cm; left renal cortical thickness is 1.1 cm. Renal c ortical echotexture is normal. No hydronephrosis or nephrolithiasis. No suspicious solid mass lesio ns. Bladder: Pre-void bladder volume is 678 mL. Post-void residual is 493 mL. Pre-void images demonstr ate no intraluminal masses or stones. On pre-void images, neither ureteral jets are noted with color Doppler interrogation. (Of note, ureteral jets may not be detectable in up to 25% of cases due to i nsufficient differences in specific gravity between ureteral and bladder urine). Miscellaneous: No free pelvic fluid. IMPRESSION: No hydronephrosis or nephrolithiasis found. Large prevoid bladder volume, a large postv oid residual as discussed above. Dictated by: Colin Gibson M.D. on 12/19/2016 at 18:25 Approved by: Colin Gibson M.D. on 12/19/2016 at 18:26
--- NOTE | 2016-12-19 21:35 | NUR ---
Lantus Pt reports that he takes Lantus every night. No orders currently in [facility]. Physician paged and is aware.
[2016-12-20] VITALS (8 sets, daily range): BP systolic 111–134; BP diastolic 69–86; PULSE 71–85; RESP 16–18; O2SAT 93–96
--- NOTE | 2016-12-20 01:38 | PCM.PNMED ---
Subjective Date of Service Dec 20, 2016 Subjective Patient has no new complaints. He can use to feel generalized weakness and lightheadedness, however he does feel a little bit better since admission. Exam Vital Signs Vital Sign - Last Date Time Temp Pulse Resp B/P Pulse Ox O2 Delivery O2 Flow Rate FiO2 12/19/16 23:46 37.0 12/19/16 22:22 82 16 107/67 95 CPAP Intake and Output 12/19/16 12/19/16 12/20/16 Cumulative From/Thru 15:00 23:00 07:00 12/18/16 16:19 - 12/19/16 20:20 Intake Total 266 ml 2061 ml 3991 ml Output Total 975 ml 1850 ml 5625 ml Balance -709 ml 211 ml -1634 ml Intake Oral 1800 ml 2280 ml IV Total 266 ml 261 ml 1711 ml Output Urine Total 975 ml 1850 ml 5625 ml # Bowel Movements 0 0 Exam General: Patient is lying supine in bed in no apparent distress. HEENT: Head is atraumatic and normocephalic. Eyes: Pupils are equally round and reactive to light and accommodation. Extraocular muscles are intact. Sclera are white, anicteric. Subconjunctival mucosa is pink. Ears and nose are unremarkable. Oropharynx: There is no mucosal lesions, there is no thrush, there is no pharyngitis. Neck: Is supple, there are no nodes, or masses or tenderness. Chest: Is clear to auscultation and percussion. There are no appreciable rales , rhonchi, wheezes or rubs. Heart: Rate, rhythm is regular. There is no murmur, rub or gallop. Abdomen: Good bowel sounds are present. Abdomen is soft, nontender, no organomegaly or masses were appreciated. Extremities: Are symmetrical and well perfused. There is no edema, there is no cellulitis, no rash. Neurologic: There are no focal neurological deficits. Cranial nerves II through XII are intact. There are no sensory or motor deficits. Psychiatric: Patients mood is calm and he shows no sign of agitation. Genital: Deferred Rectal: Deferred Lab and Diagnostics Result Diagram: 12/19/16 0750 12/19/16 075 Microbiology Name: ENZO NUNES Noelle Age/Sex: 61/M Attend Dr: Leon Liang Acct: [id number] Unit: [id number] Status: ADM IN Location: [facility] [place] 238-1 Re12/18/16 Disch: Specimen: [id number] Collected: 12/18/16 Status: COMP Req#: [id number] Received: 12/19/16 Source: RANDOM Sp Desc : Subm Dr: Delroy Goff MD Ordered: EOSMN Comments: Collected by Nurse/Unit? Y/N Y Comment: add on Procedure Result Verified Site Microbiology NARESH EOSINOPHIL URINE STAIN Final 12/19/16-1117 URINE EOSINOPHIL SMEAR NONE SEEN X-Rays, CTs and MRIs PROCEDURE: US RENAL SONOGRAM INDICATIONS: GENEVA TECHNIQUE: Real-time scanning was performed of the kidneys and bladder, with image documentation. COMPARISON: None. FINDINGS: Kidneys: Kidneys are normal in size. Right kidney measures 10.7 cm long; left kidney measures 11.5 cm long. Right renal cortical thickness is 1.0 cm; left renal cortical thickness is 1.1 cm. Renal cortical echotexture is normal. No hydronephrosis or nephrolithiasis. No suspicious solid mass lesions. Bladder: Pre-void bladder volume is 678 mL. Post-void residual is 493 mL. Pre -void images demonstrate no intraluminal masses or stones. On pre-void images, neither ureteral jets are noted with color Doppler interrogation. (Of note, ureteral jets may not be detectable in up to 25% of cases due to insufficient differences in specific gravity between ureteral and bladder urine). Miscellaneous: No free pelvic fluid. IMPRESSION: No hydronephrosis or nephrolithiasis found. Large prevoid bladder volume, a large postvoid residual as discussed above. Dictated by: Colin Gibson M.D. on 12/19/2016 at 18:25 Approved by: Colin Gibson M.D. on 12/19/2016 at 18:26 Assessment & Plan This is a pleasant 61-year-old male with history of type II diabetes and chronic renal insufficiency, hypertension CHF and history of FL who presented with 3 day history of generalized weakness and lightheadedness. Of note patient was recently discharged from the ED for renal failure last week. Patient was admitted to the hospitalist service for further evaluation and treatment. # Acute on chronic kidney disease stage III with diabetic nephropathy, with acute azotemia, present on admission, active - Of note patient was seen by Dr. Goff for consult on his hospitalization on 11/22/2016 - Patient has history of NSAID-induced acute kidney injury on prior hospitalization earlier this month, history of diabetic nephropathy, as well as possible ischemic ATN component per nephrology note. - BUN 117, creatinine 3.79, of no patient had a creatinine of 1.68 on 12/02/2016 - Sodium 135, potassium 4.8, chloride 93, CO2 23, - Patient was given a bolus of normal saline in the ED - Patient is voiding - UA was negative - We will continue to hydrate patient with normal saline at a rate of 75 mL per hour, being careful not to overload the patient given his history of chronic kidney disease and CHF. - We will follow patient with daily weights strict out of bed weights. - We will get nephrology consult in the morning regarding this patient. - We will place him on continuous cardiac monitoring remote telemetry - We will avoid nephrotoxic agents, such as NSAIDs, hold home medication lisinopril - We will medication Lasix for now # Leukocytosis, present on admission, active - WBCs 11.7 with left shift -Temperature 37.4, pulse 79, respiratory rate 17, blood pressure 101/60 with a map of 74, 95% on room air. - He does not meet sepsis criteria - UA was negative - We will order pro calcitonin # Anemia normocytic hypochromic, Present on admission, active - H/H9.3/29.8 with MCV of 85.4, MCHC of 31.2 and RDW of 16.8 - Likely due to anemia of chronic inflammation - Patient is currently being worked up at Dr. Juárez's office for cause of his anemia # Hyperglycemia, in a known type II diabetic, present on admission, active - Glucose 197 - We will obtain hemoglobin A1c - We will continue home medication Lantus 50 units subcutaneous at bedtime - We will hold NovoLog pen and start low-dose correctional scale insulin - Diabetic diet Chronic problems # Chronic Back pain - Patient was given medication Roxicodone 10 mg by mouth once and 5 mg by mouth once in the ED - Patient reports that he was given prescription for prednisone by his PCP today for his herniated disks. - We will verify with patient's pharmacy in the morning and then plan to start prednisone accordingly - Patient takes oxycodone 10/325 grams every 6 hours when necessary for pain # CHF, presumed stable - No echocardiogram on record in [facility] # Hx of coronary artery disease with FL - We will continue medication Plavix 75 mg daily - aspirin 81 mg daily #Diabetes mellitus with neuropathy and nephropathy # HTN with hypertensive nephrosclerosis. - Hold home medication lisinopril - We will hold home medication Lasix for now - We will continue medication metoprolol succinate ER 25 mg by mouth daily - Continue medication isosorbide dinitrate 40 mg 3 times a day - Continue home medication hydralazine 100 mg by mouth 3 times a day #GERD - Continue medication omeprazole daily #Sleep apnea - wears CPAP mask #Depression with Anxiety #Hyperlipidemia - We will continue medication atorvastatin 40 mg daily Disposition: The patient will likely be here another 48-72 hours for evaluation and treatment of the above conditions. Dr. Christa Barlow will follow in a.m. CODE STATUS: Full code PCP: Dennis Bronson M.D. DVT PE prophylaxis: SubQ heparin Q8H Contact: Pain Evaluation: Adequate Pain Control VTE Prophylaxis: Sub-Q Heparin (Unfractionated) Resuscitation Status: CPR: Attempt Resuscitation AzulLeon MD Dec 20, 2016 01:38
[2016-12-20 07:34] LABS: BASOPHILS % (AUTO) 0 % (0-3); EOSINOPHILS % (AUTO) 1.6 % (0-5); MONOCYTES % (AUTO) 9.4 % (4-12); Mean Corpuscular Hemoglobin 26.3 pg (27.0-35.0); Mean Corpuscular Volume 86.4 fL (81-100); NEUTROPHILS % (AUTO) 72.8 % (40-74); Platelet Count 166 bil/L (150-400)
[2016-12-20] MEDS: Insulin LISPRO 300 Unit/3 mL Inj SUBQ SCH ×4 (08:10→21:36)
[2016-12-20] MEDS: Heparin 5,000 Unit/mL Inj SUBQ SCH ×2 (08:13→16:05)
[2016-12-20] MEDS ORDERED: Lactulose 20 Gm/30 mL 30 mL Syrup PO ONE (13:10)
--- NOTE | 2016-12-20 13:10 | PCM.PNMED ---
Subjective Date of Service Dec 20, 2016 Subjective Somewhat less fatigue and malaise than when he was admitted, no other complaints. Exam Vital Signs Vital Sign - Last Date Time Temp Pulse Resp B/P Pulse Ox O2 Delivery O2 Flow Rate FiO2 12/20/16 08:24 83 12/20/16 08:18 37.0 16 134/86 94 Room Air Intake and Output 12/19/16 12/19/16 12/20/16 Cumulative From/Thru 15:00 23:00 07:00 12/18/16 16:19 - 12/20/16 06:06 Intake Total 266 ml 2061 ml 1212 ml 5203 ml Output Total 975 ml 1850 ml 1625 ml 7250 ml Balance -709 ml 211 ml -413 ml -2047 ml Intake Oral 1800 ml 400 ml 2680 ml IV Total 266 ml 261 ml 812 ml 2523 ml Output Urine Total 975 ml 1850 ml 1625 ml 7250 ml # Bowel Movements 0 0 Exam General: Alert and oriented, no acute distress Heart: Regular Lungs: Clear Abdomen: Soft, non-tender Extremities: No pedal edema IVs and Medications Medications Reviewed: Medications were reviewed in detail Lab and Diagnostics Result Diagram: 12/20/1662812/20/16 0629 Microbiology Name: ENZO NUNES Age/Sex: 61/M Attend Dr: Leon Liang Acct: [id number] Unit: [id number] Status: ADM IN Location: [place] [address]-1 Re12/18/16 Disch: Specimen: [id number] Collected: 12/18/16 Status: COMP Req#: [id number] Received: 12/19/16 Source: RANDOM Sp Desc : Subm Dr: Delroy Goff MD Ordered: EOSMN Comments: Collected by Nurse/Unit? Y/N Y Comment: add on Procedure Result Verified Site Microbiology NARESH EOSINOPHIL URINE STAIN Final 12/19/16 URINE EOSINOPHIL SMEAR NONE SEEN X-Rays, CTs and MRIs PROCEDURE: US RENAL SONOGRAM INDICATIONS: GENEVA TECHNIQUE: Real-time scanning was performed of the kidneys and bladder, with image documentation. COMPARISON: None. FINDINGS: Kidneys: Kidneys are normal in size. Right kidney measures 10.7 cm long; left kidney measures 11.5 cm long. Right renal cortical thickness is 1.0 cm; left renal cortical thickness is 1.1 cm. Renal cortical echotexture is normal. No hydronephrosis or nephrolithiasis. No suspicious solid mass lesions. Bladder: Pre-void bladder volume is 678 mL. Post-void residual is 493 mL. Pre -void images demonstrate no intraluminal masses or stones. On pre-void images, neither ureteral jets are noted with color Doppler interrogation. (Of note, ureteral jets may not be detectable in up to 25% of cases due to insufficient differences in specific gravity between ureteral and bladder urine). Miscellaneous: No free pelvic fluid. IMPRESSION: No hydronephrosis or nephrolithiasis found. Large prevoid bladder volume, a large postvoid residual as discussed above. Dictated by: Colin Gibson M.D. on 12/19/2016 at 18:25 Approved by: Colin Gibson M.D. on 12/19/2016 at 18:26 Assessment & Plan This is a pleasant 61-year-old male with history of type II diabetes and chronic renal insufficiency, hypertension CHF and history of PR who presented with 3 day history of generalized weakness and lightheadedness. Of note patient was recently discharged from the ED for renal failure last week. Patient was admitted to the hospitalist service for further evaluation and treatment. # Acute on chronic kidney disease stage III with diabetic nephropathy, with acute azotemia, present on admission, active - Patient has history of NSAID-induced acute kidney injury on prior hospitalization earlier this month, history of diabetic nephropathy, as well as possible ischemic ATN component per nephrology note. - on admission BUN 117, creatinine 3.79, then 3.07 next day and 2.89 today ( had a creatinine of 1.68 at discharge on 12/02/2016) - Patient was given a bolus of normal saline in the ED, then normal saline at a rate of 75 mL per hour, being careful not to overload the patient given his history of chronic kidney disease and CHF. - We will avoid nephrotoxic agents, such as NSAIDs, home medication lisinopril held - Lasix initially continued but then DC'd by nephrology - kidney u/s: No hydronephrosis or nephrolithiasis found. Large prevoid bladder volume then a large postvoid residual of 493 cc. # Urinary retention (postvoid residual of 493 cc on kidney u/s) - will add flomax # Leukocytosis, present on admission, active - WBCs 11.7 with left shift on admission, 7.7 today - He did not meet sepsis criteria (on admission Temperature 37.4, pulse 79, respiratory rate 17, blood pressure 101/60 with a map of 74, 95% on room air) - UA was negative - pro calcitonin 0.83 # Anemia normocytic hypochromic, Present on admission, active - H/H9.3/29.8 with MCV of 85.4, MCHC of 31.2 and RDW of 16.8 - Likely due to anemia of chronic inflammation - Patient is currently being worked up at Dr. Juárez's office for cause of his anemia # Hyperglycemia, in a known type II diabetic, present on admission, active - Glucose 200's, will resume home medication Lantus 50 units subcutaneous at bedtime - held NovoLog pen and instead on low-dose correctional scale insulin - Diabetic diet Chronic problems # Chronic Back pain - Patient reports that he was given prescription for prednisone by his PCP today for his herniated disks. - feels got significant benefit from Prednisone (with taper) earlier this month and very much wants another course in spite of adverse effects, will start with Prednisone 40 mg daily - Patient takes oxycodone 10/325 grams every 6 hours when necessary for pain # CHF, presumed stable - No echocardiogram on record in [facility] - resume home meds except lasix and lisinopril # Hx of coronary artery disease with PR - resume Plavix 75 mg daily and aspirin 81 mg daily #Diabetes mellitus with neuropathy and nephropathy # HTN with hypertensive nephrosclerosis. - Hold home medication lisinopril - resume metoprolol succinate ER 25 mg by mouth daily, isosorbide dinitrate 40 mg 3 times a day, hydralazine 100 mg by mouth 3 times a day #GERD - resume medication omeprazole daily #Sleep apnea - wears CPAP mask #Depression with Anxiety #Hyperlipidemia - resume atorvastatin 40 mg daily Disposition: The patient will likely be here another 48-72 hours for evaluation and treatment of the above conditions. Dr. Christa Barlow will follow in a.m. CODE STATUS: Full code PCP: Dennis Bronson M.D. DVT PE prophylaxis: SubQ heparin Q8H Contact: VTE Prophylaxis: Sub-Q Heparin (Unfractionated) Resuscitation Status: CPR: Attempt Resuscitation Christa Barlow MD Dec 20, 2016 13:10 Resuscitation Status: CPR: Attempt Resuscitation Christa Barlow MD Dec 20, 2016 13:10 Christa Barlow MD Dec 20, 2016 13:10
--- NOTE | 2016-12-20 13:12 | PCM.PNNEPH ---
Subjective Date of Service Dec 20, 2016 Subjective PVR > 400 ml noted. No F/C/N/V/CP/SOB. Has not has BM. (+) back pain, on oxycodone and IV dilaudid PRN. Exam Vital Signs Vital Sign - Last Date Time Temp Pulse Resp B/P Pulse Ox O2 Delivery O2 Flow Rate FiO2 12/20/16 08:24 83 12/20/16 08:18 37.0 16 134/86 94 Room Air Intake and Output 12/19/16 12/19/16 12/20/16 Cumulative From/Thru 15:00 23:00 07:00 12/18/16 16:19 - 12/20/16 06:06 Intake Total 266 ml 2061 ml 1212 ml 5203 ml Output Total 975 ml 1850 ml 1625 ml 7250 ml Balance -709 ml 211 ml -413 ml -2047 ml Intake Oral 1800 ml 400 ml 2680 ml IV Total 266 ml 261 ml 812 ml 2523 ml Output Urine Total 975 ml 1850 ml 1625 ml 7250 ml # Bowel Movements 0 0 Exam General appearance: Awake, alert, oriented x3. No acute distress. HEENT: PERRLA, atraumatic, moist mucous membranes. No pallor, no jaundice. No JVD. No lymphadenopathy. No thyroid enlargement. Heart: Regular rhythm. Normal S1, S2. No murmurs, rubs, or gallops. Lungs: Clear to auscultation bilaterally. No wheezing. No rhonchi. No accessory muscle use. Good air entry. Abdomen: Soft, obese. Active bowel sounds. Nontender, nondistended. No hepatosplenomegaly. Extremity: No edema on the right lower extremity. Positive for some trace edema on the left lower ext. Lab and Diagnostics Result Diagram: 12/20/1662812/20/16628 Microbiology Name: ENZO NUNES Age/Sex: 61/M Attend Dr: Leon Liang Acct: [id number] Unit: [id number] Status: ADM IN Location: [facility] [place]-1 Re12/18/16 Disch: Specimen: [id number] Collected: 12/18/16 Status: COMP Req#: [id number] Received: 12/19/16 Source: RANDOM Sp Desc : Subm Dr: Delroy Goff MD Ordered: EOSMN Comments: Collected by Nurse/Unit? Y/N Y Comment: add on Procedure Result Verified Site Microbiology NARESH EOSINOPHIL URINE STAIN Final 12/19/16 URINE EOSINOPHIL SMEAR NONE SEEN X-Rays, CTs and MRIs PROCEDURE: US RENAL SONOGRAM INDICATIONS: GENEVA TECHNIQUE: Real-time scanning was performed of the kidneys and bladder, with image documentation. COMPARISON: None. FINDINGS: Kidneys: Kidneys are normal in size. Right kidney measures 10.7 cm long; left kidney measures 11.5 cm long. Right renal cortical thickness is 1.0 cm; left renal cortical thickness is 1.1 cm. Renal cortical echotexture is normal. No hydronephrosis or nephrolithiasis. No suspicious solid mass lesions. Bladder: Pre-void bladder volume is 678 mL. Post-void residual is 493 mL. Pre -void images demonstrate no intraluminal masses or stones. On pre-void images, neither ureteral jets are noted with color Doppler interrogation. (Of note, ureteral jets may not be detectable in up to 25% of cases due to insufficient differences in specific gravity between ureteral and bladder urine). Miscellaneous: No free pelvic fluid. IMPRESSION: No hydronephrosis or nephrolithiasis found. Large prevoid bladder volume, a large postvoid residual as discussed above. Dictated by: Colin Gibson M.D. on 12/19/2016 at 18:25 Approved by: Colin Gibson M.D. on 12/19/2016 at 18:26 Plan Impression 1. Acute kidney injury on chronic kidney disease, likely related to prerenal azotemia. 2. Urinary retention due to narcotics vs DM-2, LOPEZ . 3. Type 2 diabetes with diabetic nephropathy. 4. Hypertension with hypertensive nephrosclerosis. 5. Chronic back pain with underlying disease of herniated disc. 6. Chronic lower extremity swelling, left more than right. 7. Chronic anemia. PLAN: 1. d/c IVF when the current bag is over. 2. Hold lisinopril and Lasix. 3. Repeat PVR, in and out cath x1 if urine volume > 400 ml. 4. Lactulose x 1 for BM. 5. Check PSA level. Delroy Goff MD Dec 20, 2016 13:12
[2016-12-20] MEDS: 0.9% Sodium Chloride 1,000 ML IV SCH ×2 (14:23→17:17)
[2016-12-20] MEDS: MeTOProlol XL 25 mg ER24 Tablet PO SCH (14:23)
[2016-12-20] MEDS: predniSONE 20 mg Tablet PO SCH (14:23)
[2016-12-20] MEDS: oxyCODONE-Acetamin 10-325 mg Tablet PO PRN ×2 (14:33→20:48)
--- NOTE | 2016-12-20 16:14 | NUR ---
Social Work-screening: Data:EMR reviewed. Pt is a 61 y/o male who was admitted on 12/18/16 for acute renal failure per H&P. Pt's insurance is [employer] and PCP is Audie Collins MD. EMR Reviewed. Pt's readmission score is 5. Pt resides at home and was just recently discharge home with Services. SW attempted to see pt today. SW to follow up tomorrow with pt. SW will continue to follow. Assessment:Pt who is independent at baseline. Plan:Anticipate pt to discharge home when medically stable. SW to follow up with pt tomorrow. SW will continue to follow. RICKY De Luna
--- NOTE | 2016-12-20 18:08 | NUR ---
VOIDING Patient has residual of 647mls one hour post void this am. Second residual post void scan 2 hours later was 316mls.and 4hrs later third residual post void scan had only 70mls. Total urine output for shift 2750ml on 5 voids. Patient restarted on Flomax, Cr 2.8 and BUN 105 trending down but still high. Blood sugars 302-252, coverage given and Lantus restarted tonight. Bilateral edema, RA, CPAP at night, Vicodin for back pain, telemetry SR 80's, plan to d/c home 1-2 days.
[2016-12-20] MEDS ORDERED: Insulin GLARgine 100 Unit/mL Syringe SUBQ SCH (21:00)
[2016-12-21] MEDS: Heparin 5,000 Unit/mL Inj SUBQ SCH ×2 (00:44→08:24)
[2016-12-21] MEDS ORDERED: Insulin LISPRO 300 Unit/3 mL Inj SUBQ ONE (01:55)
[2016-12-21 02:09] VITALS: BP 144/73; PULSE 70; RESP 16; O2SAT 95
--- NOTE | 2016-12-21 02:47 | NUR ---
Blood Glucose pt BG at bed time was 401. Administered 50 units of scheduled Lantus and 4 units of sliding scale Lispro. 2hr later, BG 390. [facility] hospitalist and received order to check BG after 1 hr again. checked BG with reading 369. silvia hospitalist again and received order to give one dose of sliding scale. Administered 4 units of Lispro. will continue to monitor and provide care. Addendum: 12/21/16 at 0713 by ANTONIA HUGHES RN Bladder scanned x1 this morning showed 122 ml per [employer]. Back pain well managed with Percocet.
[2016-12-21] MEDS: oxyCODONE-Acetamin 10-325 mg Tablet PO PRN (02:56)
[2016-12-21 06:21] VITALS: BP 119/71; PULSE 71; RESP 18; O2SAT 96
[2016-12-21] MEDS: 0.9% Sodium Chloride 1,000 ML IV SCH (07:08)
[2016-12-21] MEDS ORDERED: Pantoprazole 40 mg ER24 Tablet PO SCH (07:30)
[2016-12-21] MEDS: predniSONE 20 mg Tablet PO SCH (08:18)
[2016-12-21] MEDS: MeTOProlol XL 25 mg ER24 Tablet PO SCH (08:19)
[2016-12-21] MEDS: Insulin LISPRO 300 Unit/3 mL Inj SUBQ SCH ×2 (08:28→11:57)
[2016-12-21 08:41] VITALS: BP 118/73; PULSE 73; RESP 18; O2SAT 94
[2016-12-21] MEDS ORDERED: 0.9% Sodium Chloride 1,000 ML IV SCH (10:55)
--- NOTE | 2016-12-21 11:19 | NUR ---
Social Work-readiness for discharge: Data:EMR Reviewed. pt is on day 3 of hospitalization for acute renal failure per H&P. Pt is not medically stable anticipates 1-2 more days. SW met with pt at bedside, SW role explained. Pt is alert and oriented x3. Pt resides at home with his friend Arjun where he remains independent with ADLS. pt uses a fww or cane at baseline and does not drive. Pt is currently open with [facility] services. SW to await MD order for resume prior to contacting [facility]. Pt has all the DPOA/ advanced directive paperwork, just has not completed this, SW encouraged pt to complete this. Pt states his friend Arjun will provide transport home. SW provided phone number and plan on white board in room. SW will continue to follow. Assessment:pt who is currently open with . Plan:Anticipate pt to discharge home when medically stable. Pt will need resume [facility] order, SW to await Order prior to contacting [facility]. SW will continue to follow. RICKY De Luna
[2016-12-21 12:30] VITALS: BP 143/81; PULSE 75; RESP 18; O2SAT 94
--- NOTE | 2016-12-21 12:53 | PCM.DIMED ---
Discharge Instructions Date of Service Dec 21, 2016 Dates of Hospitalization Dec 18, 2016 at 20:22 Discharge Diagnosis Discharge Diagnosis 1. Acute kidney injury on chronic kidney disease, likely related to prerenal azotemia. 2. Urinary retention due to narcotics vs DM-2, LOPEZ . 3. Type 2 diabetes with diabetic nephropathy. 4. Hypertension with hypertensive nephrosclerosis. 5. Chronic back pain with underlying disease of herniated disc. 6. Chronic lower extremity swelling, left more than right. 7. Chronic anemia. Diet Discharge Diet: Diabetic, Renal Diet Activity Discharge Activity: No restrictions Call your provider Call your provider for: Other (worsening symptoms) Patient Instructions Follow-up with PCP in: Other (3 days and have blood tests (BMP) done at that time) Provider: Adam [employer] ENGINEER ROBERTH GARCIA Additional Information See your kidney doctor within 1 to 2 weeks Christa Barlow MD Dec 21, 2016 12:53
[2016-12-21] MEDS ORDERED: PRE10 PO (12:58)
[2016-12-21] MEDS ORDERED: TAMS0.4C98 PO (12:58)
--- NOTE | 2016-12-21 13:07 | PCM.DC.MED ---
Discharge Summary Date of Service Dec 21, 2016 Dates of Hospitalization Date of Hospital Admission Dec 18, 2016 at 20:22 Date of Discharge: Dec 21, 2016 Providers: Admitting Physician: Leon Liang MD Primary Care Physician: Audie Collins MD Attending Physician: Leon Liang MD Diagnosis at Time of Discharge Diagnosis at Time of Discharge 1. Acute kidney injury on chronic kidney disease, likely related to prerenal azotemia. 2. Urinary retention due to narcotics vs DM-2, LOPEZ . 3. Type 2 diabetes with diabetic nephropathy. 4. Hypertension with hypertensive nephrosclerosis. 5. Chronic back pain with underlying disease of herniated disc. 6. Chronic lower extremity swelling, left more than right. 7. Chronic anemia. Procedures XRay, CTs & MRIs PROCEDURE: US RENAL SONOGRAM INDICATIONS: GENEVA TECHNIQUE: Real-time scanning was performed of the kidneys and bladder, with image documentation. COMPARISON: None. FINDINGS: Kidneys: Kidneys are normal in size. Right kidney measures 10.7 cm long; left kidney measures 11.5 cm long. Right renal cortical thickness is 1.0 cm; left renal cortical thickness is 1.1 cm. Renal cortical echotexture is normal. No hydronephrosis or nephrolithiasis. No suspicious solid mass lesions. Bladder: Pre-void bladder volume is 678 mL. Post-void residual is 493 mL. Pre -void images demonstrate no intraluminal masses or stones. On pre-void images, neither ureteral jets are noted with color Doppler interrogation. (Of note, ureteral jets may not be detectable in up to 25% of cases due to insufficient differences in specific gravity between ureteral and bladder urine). Miscellaneous: No free pelvic fluid. IMPRESSION: No hydronephrosis or nephrolithiasis found. Large prevoid bladder volume, a large postvoid residual as discussed above. Dictated by: Colin Gibson M.D. on 12/19/2016 at 18:25 Approved by: Colin Gibson M.D. on 12/19/2016 at 18:26 Brief History This is a pleasant 61 y/o M with a hx of obesity, history of of DM-II with diabetic nephropathy and diabetic neuropathy, chronic renal insufficiency with chronic kidney disease stage III, HTN, CHF, history of coronary artery disease with AL, and chronic anemia of undetermined etiology being followed by by Dr. Juárez, who resented to the ED with complaint of generalized weakness onset 3 days ago.she states that the symptoms are similar to what he was experiencing when he was admitted to the hospital in early November. Associated symptoms included dizziness as a spinning which reportedly was similar to what he experienced during his last hospitalization, and difficulty with ambulation. The pt was discharged from the ED last week with renal failure. He had gone to Dr. Bolanos at Dr. Juárez's office today and was found to have elevated BUN and creatinine. The patient was instructed to go to the ED. Patient reports that he was doing just fine up until about 3 days ago when he began to began experiencing weakness, dizziness, and difficulty walking. He also complains of chronic low back pain and reports recent diagnosis of 5 herniated discs. Patient was requesting that he replaced back on his prednisone and states that he was given a prescription today by his PCP Dr. Collins but had not yet had a chance to fill it. The pt takes hydrocodone and medications for muscle spasms but denies any anti-inflammatory medications. Patient denies difficulty urinating or producing urine, headaches, lightheadedness, fever, chills, sweats , nausea, vomiting, shortness of breath, chest pain, dyspnea, hematuria, constipation, abdominal pain, flank pain, recent weight gain. In the ED: Patient had no new imaging. Signs showed: Temperature 37.4, pulse 79, respiratory rate 17, blood pressure 101/60 with a map of 74, 95% on room air. Patient has voided 675 mL since admission. Current weight is 128.6. Patient was given medication Roxicodone 10 mg by mouth once and 5 mg by mouth once in the ED. He was given 1 L normal saline bolus. His hemogram showed: WBC 11.7 with 76.7% PMNs and left shift, 13.4% lymphocytes , H/H was 9.3/29.8, platelet count 204 Chemistry panel showed: Sodium 135, potassium 4.8, chloride 93, CO2 23, BUN 117 , creatinine 3.79, of no patient had a creatinine of 1.68 on 12/02/2016. Glucose 197 otherwise normal chemistry panel UA was negative for infection. Hospital Course # Acute on chronic kidney disease stage III with diabetic nephropathy, with acute azotemia, present on admission, slowing improving - Patient has history of NSAID-induced acute kidney injury on prior hospitalization earlier this month, history of diabetic nephropathy, as well as possible ischemic ATN component per nephrology note. - on admission BUN 117, creatinine 3.79, then 3.07 next day, then 2.89 and now 2.84 today (had a creatinine of 1.68 at discharge on 12/02/2016) - Patient was given a bolus of normal saline in the ED, then normal saline at a rate of 75 mL per hour thru hospital stay, would have been DC'd today by nephrology if not discharging - We will avoid nephrotoxic agents, such as NSAIDs, home medication lisinopril held - Lasix initially continued but then DC'd by nephrology - kidney u/s: No hydronephrosis or nephrolithiasis found. Large prevoid bladder volume then a large postvoid residual of 493 cc. 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 1-2 weeks # Urinary retention (postvoid residual of 493 cc on kidney u/s) - started on flomax December 20 - subsequent PVR's by bladder scans have been low per nurse report # Leukocytosis, present on admission, active - WBCs 11.7 with left shift on admission, 7.7 today - He did not meet sepsis criteria (on admission Temperature 37.4, pulse 79, respiratory rate 17, blood pressure 101/60 with a map of 74, 95% on room air) - UA was negative - pro calcitonin 0.83 # Anemia normocytic hypochromic, Present on admission, active - H/H9.3/29.8 with MCV of 85.4, MCHC of 31.2 and RDW of 16.8 - Likely due to anemia of chronic inflammation - Patient is currently being worked up at Dr. Juárez's office for cause of his anemia # Hyperglycemia, in a known type II diabetic, present on admission, active - Glucose 200's, will resume home medication Lantus 50 units subcutaneous at bedtime - held NovoLog pen and instead on low-dose correctional scale insulin - Diabetic diet - Glucoses did increase to 300's with prednisone - will need out pt follow up Chronic problems # Chronic Back pain - Patient reports that he was given prescription for prednisone by his PCP today for his herniated disks. - feels got significant benefit from Prednisone (with taper) earlier this month and very much wants another course in spite of adverse effects so started Prednisone 40 mg daily on December 20 - will DC on same tapering regimen as earlier this month - Patient takes oxycodone 10/325 grams every 6 hours when necessary for pain # CHF, presumed stable - No echocardiogram on record in [facility] - home meds continued except lasix and lisinopril # Hx of coronary artery disease with AL - continued Plavix 75 mg daily and aspirin 81 mg daily #Diabetes mellitus with neuropathy and nephropathy # HTN with hypertensive nephrosclerosis. - Hold home medication lisinopril - continued metoprolol succinate ER 25 mg by mouth daily, isosorbide dinitrate 40 mg 3 times a day, hydralazine 100 mg by mouth 3 times a day #GERD - continued omeprazole daily #Sleep apnea - wears CPAP mask #Depression with Anxiety #Hyperlipidemia - continued atorvastatin 40 mg daily Exam Vital Signs (Last) Date Time Temp Pulse Resp B/P Pulse Ox O2 Delivery O2 Flow Rate FiO2 12/21/16 12:30 36.2 75 18 143/81 94 Room Air Exam alert and oriented, in no distress heart reg lungs clear abd soft, NT no edema Test 12/18/16 17:15 12/18/16 21:21 12/19/16 07:50 12/20/16 06:29 Procalcitonin 0.83ng/mL (0.00-0.08) Hold Rain Top Tube Received (Received) Urine Color Straw (YELLOW) Urine Appearance Hazy (CLEAR,HAZY) Urine pH 5.0 (5.0-8.0) Urine Specific [place] 1.010 (1.003-1.035) Urine Protein 30mg/dL (NEG,TRACE) Urine Glucose (UA) Negativemg/dL (NEGATIVE) Urine Ketones Negativemg/dL (NEGATIVE) Urine Occult Blood Negative (NEGATIVE) Urine Nitrite Negative (NEGATIVE) Urine Bilirubin Negative (NEGATIVE) Urine Urobilinogen Normalmg/dL (NORMAL) Urine Leukocyte Esterase Negative (NEGATIVE) Urine RBC 0-2/hpf (0-2) Urine WBC 0-5/hpf (0-5) Urine Epithelial Cells Few/hpf (NONE-MOD) Urine Crystals None seen (NONE SEEN) Urine Bacteria Few/hpf (NONE-FEW) Urine Hyaline Casts None/lpf (NONE) Urine Granular Casts None seen (NONE SEEN) Urine Waxy Casts None seen (NONE SEEN) Urine Red Blood Cell Casts None seen (NONE SEEN) Urine White Blood Cell Casts None seen (NONE SEEN) Urine Mucus Present (None Seen) Urine Trichomonas None seen (NONE SEEN) Urine Yeast None (NONE SEEN) Urinalysis Comment None Urine Culture Reflexed Not indicated Urine Random Creatinine 62mg/dL (22-328) Urine Random Total Protein 36mg/dL (0-15) Urine Random Sodium 82mEq/L Total Bilirubin 0.4mg/dL (0.0-1.2) Aspartate Amino Transf (AST/SGOT) 7U/L (0-50) Alanine Aminotransferase (ALT/SGPT) 10U/L (0-44) Alkaline Phosphatase 126U/L (25-160) Total Protein 6.9g/dL (6.4-8.4) Albumin 3.5g/dL (3.4-5.0) White Blood Count 7.7th/mm3 (3.8-10.1) Red Blood Count 3.23mil/mm3 (4.40-5.80) Hemoglobin 8.5g/dL (13.8-17.2) Hematocrit 27.9% (41.0-50.0) Mean Corpuscular Volume 86.4fL (81-100) Mean Corpuscular Hemoglobin 26.3pg (27.0-35.0) Mean Corpuscular Hemoglobin Concent 30.5% (32.0-37.0) Red Cell Distribution Width 16.4% (12.3-15.4) Platelet Count 166bil/L (150-400) Neutrophils (%) (Auto) 72.8% (40-74) Lymphocytes (%) (Auto) 15.5% (14-46) Monocytes (%) (Auto) 9.4% (4-12) Eosinophils (%) (Auto) 1.6% (0-5) Basophils (%) (Auto) 0% (0-3) Test 12/21/16 06:50 Sodium Level 137mEq/L (134-144) Potassium Level 5.0mEq/L (3.5-5.2) Chloride Level 96mEq/L (97-108) Carbon Dioxide Level 23mmol/L (18-29) Blood Urea Nitrogen 103mg/dL (8-27) Creatinine 2.84mg/dL (0.76-1.27) Estimat Glomerular Filtration Rate 24mL/min (>59) Glucose Level 300mg/dL (60-99) Calcium Level 9.5mg/dL (8.5-10.1) Microbiology Results Name: ENZO NUNES Age/Sex: 61/M Attend Dr: Leon Liang Acct: [id number] Unit: [id number] Status: ADM IN Location: [place] [address] Re12/18/16 Disch: Specimen: [id number] Collected: 12/18/16 Status: COMP Req#: [id number] Received: 12/19/16 Source: RANDOM Sp Desc : Robert Dr: Delroy Goff MD Ordered: EOSMN Comments: Collected by Nurse/Unit? Y/N Y Comment: add on Procedure Result Verified Site Microbiology NARESH EOSINOPHIL URINE STAIN Final 12/19/16-1117 URINE EOSINOPHIL SMEAR NONE SEEN Discharge Medications Discharge Medications Aspirin Chew (Aspirin Chew) 81 Mg Tablet 81 MG PO DAILY Prescribed by: SHAJI PADILLA DO, RESIDENT Atorvastatin Calcium (Atorvastatin Calcium) 40 Mg Tablet 40 MG PO DAILY ( Reported) Calcitriol (Rocaltrol) 0.25 Mcg Capsule 0.25 MCG PO DAILY (Reported) Clopidogrel (Clopidogrel) 75 Mg Tablet 75 MG PO DAILY Prescribed by: SHAJI PADILLA DO, RESIDENT Gabapentin (Gabapentin) 300 Mg Capsule 300 MG PO BID (Reported) Hydralazine (Hydralazine) 100 Mg Tablet 100 MG PO TID (Reported) Insulin Aspart (NovoLOG U-100 Pen) 100 Unit/Ml Insuln.pen 10 UNITS SC TIDAC ( Reported) Insulin Glargine (Lantus U100 Insulin Vial) 100 Unit/Ml Vial 50 UNIT SUBQ HS ( Reported) Isosorbide DN (Isosorbide DN) 20 Mg Tablet 40 MG PO TID Prescribed by: SHAJI PADILLA DO, RESIDENT Metoprolol Succinate ER (Metoprolol Succinate ER) 25 Mg Tab.er.24h 25 MG PO DAILY (Reported) Omeprazole (Omeprazole) 20 Mg Capsule.dr 20 MG PO DAILY (Reported) Prednisone (PredniSONE) 10 Mg Tablet 40 MG PO DAILY 4 tablets per day 3 days, then 3 tablets per day 3 days, then 2 tabs for 3 days, then 1 tab for 3 days, then stop. Prescribed by: DONAL BECKFORD MD Tamsulosin (Flomax) 0.4 Mg Capsule 0.4 MG PO DAILY Prescribed by: DONAL BECKFORD MD As needed Nitroglycerin SL (Nitrostat) 0.4 Mg Tab.subl 0.4 MG SL Q5MIN PRN PRN For Chest Pain (Reported) oxyCODONE-Acetaminophen 10-325 mg (oxyCODONE-Acetaminophen 10-325 mg) 1 Each Tablet 1 TABLET PO Q6H PRN PRN For Pain Prescribed by: SUSSY AGARWAL MD Followup Plan Discharge Diet: Diabetic, Renal Diet Discharge Activity: No restrictions Follow-up with PCP in: Other (3 days and have blood tests (BMP) done at that time) Provider: [employer],Donal Pemberton MD Dec 21, 2016 13:07
--- NOTE | 2016-12-21 13:13 | PCM.PNNEPH ---
Subjective Date of Service Dec 21, 2016 Subjective PVR < 100 ml. Kidney function has improved gradually. Pain is controlled. He is able to walk without difficulty. He would like to go home and stated that he will see his PCP for a repeat BMP on Thursday. His primary crown wheel assembler is Dr. Desir. Exam Vital Signs Vital Sign - Last Date Time Temp Pulse Resp B/P Pulse Ox O2 Delivery O2 Flow Rate FiO2 12/21/16 12:30 36.2 75 18 143/81 94 Room Air Intake and Output 12/20/16 12/20/16 12/21/16 Cumulative From/Thru 15:00 23:00 07:00 12/18/16 16:19 - 12/21/16 07:00 Intake Total 1671 ml 200 ml 7074 ml Output Total 2975 ml 600 ml 46773 ml Balance -1304 ml -400 ml -3751 ml Intake Oral 1346 ml 200 ml 4226 ml IV Total 325 ml 2848 ml Output Urine Total 2975 ml 600 ml 68514 ml # Voids 6 6 # Bowel Movements 1 1 Exam General appearance: Awake, alert, oriented x3. No acute distress. HEENT: PERRLA, atraumatic, moist mucous membranes. No pallor, no jaundice. No JVD. No lymphadenopathy. No thyroid enlargement. Heart: Regular rhythm. Normal S1, S2. No murmurs, rubs, or gallops. Lungs: Clear to auscultation bilaterally. No wheezing. No rhonchi. No accessory muscle use. Good air entry. Abdomen: Soft, obese. Active bowel sounds. Nontender, nondistended. No hepatosplenomegaly. Extremity: No edema on the right lower extremity. Positive for some trace edema on the left lower ext. Lab and Diagnostics Result Diagram: 12/20/16 0629 12/21/16 0650 Microbiology Name: ENZO NUNES Age/Sex: 61/M Attend Dr: Leon Liang Acct: [id number] Unit: [id number] Status: ADM [place] [facility] [place]12/18/16 Disch: Specimen: [id number] Collected: 12/18/16 Status: COMP Req#: [id number] Received: 12/19/16 Source: RANDOM Sp Desc : Subm Dr: Delroy Goff MD Ordered: EOSMN Comments: Collected by Nurse/Unit? Y/N Y Comment: add on Procedure Result Verified Site Microbiology NARESH EOSINOPHIL URINE STAIN Final 12/19/16-111 URINE EOSINOPHIL SMEAR NONE SEEN X-Rays, CTs and MRIs PROCEDURE: US RENAL SONOGRAM INDICATIONS: GENEVA TECHNIQUE: Real-time scanning was performed of the kidneys and bladder, with image documentation. COMPARISON: None. FINDINGS: Kidneys: Kidneys are normal in size. Right kidney measures 10.7 cm long; left kidney measures 11.5 cm long. Right renal cortical thickness is 1.0 cm; left renal cortical thickness is 1.1 cm. Renal cortical echotexture is normal. No hydronephrosis or nephrolithiasis. No suspicious solid mass lesions. Bladder: Pre-void bladder volume is 678 mL. Post-void residual is 493 mL. Pre -void images demonstrate no intraluminal masses or stones. On pre-void images, neither ureteral jets are noted with color Doppler interrogation. (Of note, ureteral jets may not be detectable in up to 25% of cases due to insufficient differences in specific gravity between ureteral and bladder urine). Miscellaneous: No free pelvic fluid. IMPRESSION: No hydronephrosis or nephrolithiasis found. Large prevoid bladder volume, a large postvoid residual as discussed above. Dictated by: Colin Gibson M.D. on 12/19/2016 at 18:25 Approved by: Colin Gibson M.D. on 12/19/2016 at 18:26 Plan Impression 1. Acute kidney injury on chronic kidney disease, likely related to prerenal azotemia. 2. Urinary retention due to narcotics vs DM-2, LOPEZ . -resolved. 3. Type 2 diabetes with diabetic nephropathy. 4. Hypertension with hypertensive nephrosclerosis. 5. Chronic back pain with underlying disease of herniated disc. 6. Chronic lower extremity swelling, left more than right. 7. Chronic anemia. PLAN: 1. Hold lisinopril and Lasix. 2. Repeat BMP on Thursday. 3. Lasix to be resumed depending upon a repeat BUN/Cr. I would rec to give lasix 40 mg BID. 4. F/u with his primary crown wheel assembler in 1-2 weeks. Delroy Goff MD Dec 21, 2016 13:13
--- NOTE | 2016-12-21 14:21 | NUR ---
Social Work-discharge: Data:EMR reviewed. Pt is on day 3 of hospitalization for acute renal failure per H&P. Pt is medically stable for discharge. order received for [facility] services. ADAM placed a call to [facility] and left message informing them of pt's discharge. ADAM faxed in orders to [facility] [phone]. Pt's friend Arjun to provide transport home. All updated and agreeable to plan. Assessment:Pt who would benefit from [facility]. Plan:Pt to discharge home today via POV. ADAM has faxed in [facility] orders to [facility] and message has been left. All updated and agreeable to plan. RICKY De Luna
--- NOTE | 2016-12-21 14:27 | NUR ---
DISCHARGE Patient discharged home at 1400, partner will drive him home. Patient denies pain, nausea, and shortness of breath. Medications reviewed, new Rx faxed to pharmacy, and follow up instructions provided. Patient verbalized understanding. IV catheter removed intact, patient has all his personal belongings, care notes on Acute Renal Failure given, and teaching done on DMII.
== END 2016-12-21 13:55 | disposition home health service (06) | DRG 684 ==
LOC: SED 16:17 → MOC 20:22
PROVIDERS: ADMIT Internal Medicine Infectious Disease; ATTEND Internal Medicine Infectious Disease
DX: N17.9 Acute kidney failure, unspecified (principal); E11.21 Type 2 diabetes mellitus with diabetic nephropathy; E11.40 Type 2 diabetes mellitus with diabetic neuropathy, unspecified; I12.9 Hypertensive chronic kidney disease with stage 1 through stage 4 chronic kidney disease, or unspecified chronic kidney disease; N18.3 Chronic kidney disease, stage 3 (moderate); I25.10 Atherosclerotic heart disease of native coronary artery without angina pectoris; M54.16 Radiculopathy, lumbar region; E11.65 Type 2 diabetes mellitus with hyperglycemia; D63.1 Anemia in chronic kidney disease; K21.9 Gastro-esophageal reflux disease without esophagitis; F41.8 Other specified anxiety disorders; I50.9 Heart failure, unspecified; R33.9 Retention of urine, unspecified; Z79.4 Long term (current) use of insulin; I25.2 Old myocardial infarction; Z79.82 Long term (current) use of aspirin; D63.8 Anemia in other chronic diseases classified elsewhere